=== PATIENT | male | born 1940 | race Caucasian/White ===

== ENCOUNTER 2018-01-15 10:12 | Inpatient (IN) | payer MEDICARE ==
--- NOTE | 2017-12-31 20:12 | HP ---
CC: James Kline; Dr. Caleb Allen; Dr. Pedro Chadwick* ADMISSION HISTORY AND PHYSICAL: DATE OF ADMISSION/SURGERY: 01/15/18 ATTENDING SURGEON: Dr. Pedro Calixto* (dictated by ROGELIO Desir). CHIEF COMPLAINT: Colon polyp. HISTORY OF PRESENT ILLNESS: This is a 77-year-old male, who underwent his initial screening colonoscopy on 09/11/17 prior to initiating external beam radiation therapy for prostate cancer. The study was ordered by Dr. Chadwick and performed by Dr. Allen. Findings included a small polyp in the cecum and another at 20 cm from the anal verge, both of which were removed and were benign. In addition, there were 2 large polyps at 70 cm occurring at a fold and were too large to be removed via the colonoscope. Biopsy showed tubular adenoma. The patient has not had significant symptoms other than occasional diarrhea, but generally bowel movements every 1 to 2 days without bright red blood per rectum, hematochezia, or melena. He has had some minor symptoms following the radiation therapy. There is no family history of colorectal cancer. He was seen in the office by Dr. Calixto on 11/29/17. The patient understands the options including the indications, risks, benefits, and alternatives, and would like to proceed as scheduled with laparoscopic colon polypectomy or possible partial colectomy. He has had prior urgent AAA repair via midline incision and therefore understands the potential need for conversion to open approach. PAST MEDICAL HISTORY: Prostate cancer (recently completed external beam radiation therapy around 11/21/17). He did receive what sounds like Lupron injections prior to initiation of radiation therapy and is scheduled for same with Dr. Ayers in the near future. He has been treated for hypertension. He has a history of angina (status post [employer] in 1995, but no stent placement) ( see separate stress test and medical clearance reports). He is treated for hypothyroidism, hyperlipidemia, and has a past history of gout, though no recent exacerbations. He also has osteoarthritis involving a number of joints. 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 CURRENT MEDICATIONS: 1. Metoprolol 25 mg b.i.d. 2. Enalapril 20 mg b.i.d. 3. Levothyroxine 25 mcg q. day. 4. Atorvastatin 20 mg q. day. 5. Aspirin 325 mg q. day (the patient instructed to continue perioperatively). 6. Allopurinol 300 mg q. day. 7. Tamsulosin 0.4 mg q. day. 8. Multivitamin q. day. 9. Lupron injections as noted above. 10. Nitroglycerin 0.4 mg sublingual p.r.n. (uses rarely). DRUG ALLERGIES: None known. FAMILY HISTORY: Negative for anesthesia problems, bleeding, or clotting disorders. SOCIAL HISTORY: The patient is . He is retired from retail work. He is a former smoker, who quit in 1995. He denies use of alcohol or other substances. REVIEW OF SYSTEMS: General: No recent constitutional symptoms or acute illnesses other than described in the HPI and past medical history. His weight has been stable. Head: No recent problems reported. Eyes, Ears, Nose, Throat : No problems or changes reported. He has full upper and partial lower dentures. Cardiovascular: No recent chest pain, palpitations. See also attached stress test report. No history of murmur. Respiratory: No history of asthma or COPD. Past smoking history as noted. GI: No GERD symptoms. Lower GI as noted above. : He is followed by Dr. Ayers. He recently completed radiation therapy for prostate cancer. He states that his most recent PSA was less than 1. Chart record history of nephrolithiasis (though I did not confirm that with the patient). Endocrine: Hypothyroidism, on replacement. No history of diabetes. PHYSICAL EXAMINATION GENERAL: Well-nourished, mildly obese male, in no acute distress. VITAL SIGNS: Height 5 feet 10 inches, weight 200 pounds. Blood pressure 130/70 , pulse 68, respirations 16. HEENT: Head: Atraumatic. Ears, Eyes, Nose, Throat: Pupils are equal, round, and reactive. EOMs intact. No conjunctival pallor. Oropharynx: Full upper and partial lower dentures. Remaining teeth in good repair. No intraoral lesions. NECK: No lymphadenopathy, thyromegaly, or masses. LUNGS: Clear to auscultation. No rales or wheezes, though he does have a few crackles at the right base. HEART: Regular rate and rhythm. No murmur noted. ABDOMEN: Well-healed midline incision from xiphoid process to infraumbilical. No palpable masses or organomegaly. No tenderness. There are well-healed bilateral groin incisions from femoral aortobifemoral bypass. No palpable masses. GENITALIA: Otherwise not repeated. RECTAL: Otherwise not repeated. BACK: No spinous process or CVA tenderness. EXTREMITIES: No edema. Peripheral pulses not specifically checked, though by history the patient has some degree of peripheral arterial disease. NEUROLOGICAL: Grossly intact. Specific exam not performed at this time. SKIN: Warm and dry. No suspicious rashes or lesions noted. IMPRESSION: Colon polyp. PLAN: Laparoscopic colon polypectomy or possible partial colectomy. ROGELIO DESIR [id number] #: [id number] TIM
[~2018-01-15 10:12] MED LIST: Buffered Lidocaine 0.9% SYRIN* 5 ML/SYR SYRINGE INTRADERM ONE; ERTApenem(*) 1 GM in NS 0.9% 50 ML* 50 ML IVPB SCH; Famotidine IV* 10 MG/ML 2 ML (20 mg) IV ONE
--- OUTSIDE RECORDS SUMMARY | 2018-01-15 10:17 | XMS REPORT ---
:1940 External Reference #:[id number] Author Organization [facility] Address [address] [place] [address] [place] [address] Phone [phone] Care Team Providers Name Role Phone Caleb Allen MD Care Team Information Labor/Excavator Unavailable Marisela Chris RPA Primary Care Physician Unavailable Payers Type Date Identification Numbers Payment Provider Subscriber Health Maintenance Policy Number: Medicare Blue o Jj Aden [facility] (O) [id number] PayID: [id number] [address] [address] [place] [address] [facility] Policy Number: [id number] Medicare [facility] PayID: [id number] [address] [place] [address] Problems Description No Information Family History Date Family Member(s) Problem(s) Comments Father Stomach Cancer Mother Hypertension First Brother Pancreatic Cancer Social History Type Date Description Comments Marital Status Occupation Retired Smoking Patient is a former smoker quit in 1995 Daily Caffeine Consumes on average 3 cups of regular coffee per day Exercise Type/Frequency Exercises sporadically Allergies, Adverse Reactions, Alerts Date Description Reaction Status Severity Comments 11/22/2017 NKDA active Medications Medication Date Status Form Strength Qnty SIG Indications Ordering Provider Allopurinol Active Tablets 300mg 1 by Unknown 000 mouth every day Enalapril Active Tablets 20mg 2 by Unknown Maleate 000 mouth every day Nitroglycerin 0 Active Tablets 0.4mg 1 sl Unknown 000 Sub q5mins x3 as needed for chest pain Atorvastatin Active Tablets 20mg take 1 Unknown Calcium 000 tablet at bedtime Metoprolol Active Tablets 25mg 1 by Unknown Tartrate 000 mouth twice a day Levothyroxine Active Tablets 25mcg 1 by Unknown Sodium 000 mouth every day Aspirin Active Tablets DR 325mg take 1 by Unknown 000 mouth once a day Centrum Silver Active Tablets 1 by Unknown 000 mouth every day Tamsulosin HCL Active Capsules 0.4mg 1 by Unknown 000 mouth every day Vital Signs Date Vital Result Comment 12/31/2017 Height 70 inches 5'10" Weight 200.00 lb Heart Rate 68 /min BP Systolic 130 mmHg BP Diastolic 70 mmHg Respiratory Rate 16 /min Body Temperature 97.2 F BMI (Body Mass Index) 28.7 kg/m2 11/29/2017 Height 70 inches 5'10" Weight 200.00 lb Heart Rate 66 /min BP Systolic Sitting 146 mmHg BP Diastolic Sitting 88 mmHg Respiratory Rate 16 /min Body Temperature 97.6 F BMI (Body Mass Index) 28.7 kg/m2 Results Description No Information Procedures Date CPT Code Description Status 09/11/2017 Colonoscopy Completed Encounters Type Date Location Provider CPT E/M Dx Office Visit 11/29/2017 [facility] [place], [id number] K63.5 11:00a [facility] FACS Plan of Care Future Appointment(s):01/15/2018 1:15 pm - Roby Jj PA at [facility]01/15/2018 1:15 pm - Pedro Calixto MD, FACS at [facility]12/31/2017 - Roby Jj, PAK63.5 Polyp of [id number] Encounter for other preprocedural examination
--- OUTSIDE RECORDS SUMMARY | 2018-01-15 10:17 | XMS REPORT ---
:1940 External Reference #:[id number] Author Organization [facility] Address [address], [address] [place] [address] Phone [phone] Care Team Providers Name Role Phone Marisela Chris RPAC Care Team Information Ssis Developer Unavailable Marisela Chris RPAC Primary Care Physician Unavailable Payers Type Date Identification Numbers Payment Provider Subscriber Commercial Policy Number: [id number] [employer] Number: [id number] [address] [address] PayID: [id number] [place] [address] Problems Date Description Provider Status Onset: 02/12/2014 Osteoarthritis of multiple joints EDIL Nolasco Active Note: knee Onset: 02/12/2013 Thrombocytopenic disorder EDIL Nolasco Active Note: variable Onset: 08/07/2011 Hypothyroidism EDIL Nolasco Active Note: 2009 Onset: 08/07/2011 Family history of prostate cancer EDIL Nolasco Active Onset: 08/07/2011 Patient post percutaneous EDIL Nolasco Active transluminal coronary angioplasty Note: 1995 Onset: 08/07/2011 Coronary arteriosclerosis EDIL Nolasco Active Note: IWMI 12/1995 Onset: 08/07/2011 Methicillin resistant Staphylococcus EDIL Nolasco Active aureus Note: surgical wound infection 2006 Onset: 08/07/2011 Urolith EDIL Nolasco Active Note: nonobstructing (R) renal calculi Onset: 05/16/2011 [facility]: 05/16/2011 [facility]: 1989 Onset: 05/16/2011 Benign essential [facility] Onset: 03/03/2015 Hyperglycemia Marisela Chris [facility] Active Note: noted 2001 Onset: 03/03/2015 Raised prostate specific antigen [facility]: noted 2014 Onset: 05/04/2015 Primary malignant [facility] prostate Note: 2014, hormone injection/radiation tx 2017 Onset: 09/03/2015 Cholelithiasis without obstruction [facility] Onset: 11/24/2015 Gallstone [facility] Note: noted 08/2015 CT Onset: 04/23/2017 Occlusion of left femoral artery [facility]: noted on CT 2012 Onset: 09/13/2017 Polyp of [facility] Note: tubular adenomas, 2017 Onset: 12/13/2017 Encounter for other preproced[facility] examination Onset: 10/05/2011 Aneurysm of iliac artery Alirio Vasquez M.D. Inactive Inactive: 10/05/2011 Family History Date Family Member(s) Problem(s) Comments Father due to Stomach Cancer () Father Prostate Cancer ? Father Stomach Cancer Mother due to Hypertension () Mother Hypertension Mother due to Stroke () Mother Stroke First Brother Pancreatic Cancer First Sister Renal Failure Syndrome Social History Type Date Description Comments Marital Status Lives With Diet Negative For Patient follows no dietary restrictions Diet Patient is on a low fat diet Occupation Retired Occupation staying quite active doing [employer] Cigarette Use Former Cigarette Smoker ETOH Use Occasionally consumes alcohol Smoking Patient is a former smoker Daily Caffeine Consumes on average 2 cups of regular coffee per day Daily Caffeine Diet; staying on low fat diet Allergies, Adverse Reactions, Alerts Date Description Reaction Status Severity Comments 09/21/2009 NKDA active Medications Medication Date Status Form Strength Qnty SIG Indications Ordering Provider Metoprolol 05/24/ Active Tablets 25mg 180tab take one Melvin Tartrate 2016 s tablet by Mays, mouth twice M.D. daily Enalapril 10/01/ Active Tablets 20mg 180tab 2 tabs by Melvin Maleate 2014 s mouth every Mays, day M.D. Levothyroxine 07/23/ Active Tablets 25mcg 90tabs take one Melvin Sodium 2013 tablet by Mays, mouth once M.D. daily Atorvastatin 02/11/ Active Tablets 20mg 90tabs take one Melvin Calcium 2011 tablet by Mays, mouth once M.D. daily Nitrostat 08/06/ Active Tablets 0.4mg 30tabs one Melvin 2011 Sub sublingual Mays, at onset of M.D. chest pain/ angina, may repeat q 5 minutes, follow with rc'bertin Fluocinonide / Active Solution 0.05% Thin layer Unknown 0000 to scalp prn Aspirin / Active Tablets 325mg 1 tab by Ramses 0000 mouth every Michell reynoso MD Multi-Vitamin / Active Tablets 1 po qd Gamal Pearce MD Allopurinol / Active Tablets 300mg 90tabs take one Melvin 0000 tablet by Mays, mouth once M.D. daily Tamsulosin HCL / Active Capsules 0.4mg 1 daily Constance Chadwick 0000 hn W Metoprolol 06/16/ Hx Tablets ER 50mg 90tabs 1 tab by Dev Parsons Succinate ER 2012 - 24HR mouth every Sanjay DO 2015 Enalapril / Hx 20mg 2 tabs by Unknown Maleate 0000 - mouth every 2014 Simvastatin / Hx 40mg Unknown 2014 Metoprolol / Hx 50mg Unknown Succinate 2014 Nitroglycerin / Hx 0.4mg Unknown 2014 Immunizations CPT Code Status Date Vaccine Lot # [id number] Given 02/01/2009 Tetnus Injection Vital Signs Date Vital Result Comment 12/13/2017 BP Systolic 124 mmHg BP Diastolic 70 mmHg Body Temperature 97.5 F Heart Rate 66 /min Respiratory Rate 18 /min Height 70 inches 5'10" Weight 205.50 lb BMI (Body Mass Index) 29.5 kg/m2 BSA (Body Surface Area) 2.11 m2 [place] body weight in kilograms 75 O2 % BldC Oximetry 93 % 08/21/2017 BP Systolic Sitting Right Arm 122 mmHg BP Diastolic Sitting Right Arm 80 mmHg Heart Rate 54 /min Respiratory Rate 15 /min Height 70 inches 5'10" Weight 201.00 lb BMI (Body Mass Index) 28.8 kg/m2 BSA (Body Surface Area) 2.09 m2 [place] body weight in kilograms 75 O2 % BldC Oximetry 94 % ra 02/16/2017 BP Systolic Sitting Right Arm 130 mmHg BP Diastolic Sitting Right Arm 82 mmHg Heart Rate 50 /min Respiratory Rate 18 /min Height 70 inches 5'10" Weight 206.00 lb BMI (Body Mass Index) 29.6 kg/m2 BSA (Body Surface Area) 2.11 m2 [place] body weight in kilograms 75 O2 % BldC Oximetry 94 % ra 08/16/2016 BP Systolic Sitting Right Arm 148 mmHg BP Diastolic Sitting Right Arm 82 mmHg Heart Rate 80 /min Height 70 inches 5'10" Weight 208.00 lb BMI (Body Mass Index) 29.8 kg/m2 BSA (Body Surface Area) 2.12 m2 O2 % BldC Oximetry 92 % 02/17/2016 BP Systolic Sitting Right Arm 134 mmHg BP Diastolic Sitting Right Arm 76 mmHg Heart Rate 72 /min Height 70 inches 5'10" Weight 209.25 lb BMI (Body Mass Index) 30.0 kg/m2 BSA (Body Surface Area) 2.13 m2 O2 % BldC Oximetry 91 % 08/12/2015 BP Systolic 130 mmHg BP Diastolic 86 mmHg Height 70 inches 5'10" Weight 205.00 lb BMI (Body Mass Index) 29.4 kg/m2 BSA (Body Surface Area) 2.11 m2 02/11/2015 BP Systolic 126 mmHg BP Diastolic 70 mmHg Height 70 inches 5'10" Weight 208.25 lb BMI (Body Mass Index) 29.9 kg/m2 BSA (Body Surface Area) 2.12 m2 08/12/2014 BP Systolic 142 mmHg BP Diastolic 80 mmHg Height 70 inches 5'10" Weight 212.00 lb 02/12/2014 BP Systolic 138 mmHg BP Diastolic 78 mmHg Height 70 inches 5'10" Weight 212.00 lb 10/28/2012 BP Systolic Sitting Right Arm 143 mmHg BP Diastolic Sitting Right Arm 84 mmHg Heart Rate 69 /min Respiratory Rate 16 /min Height 70 inches 5'10" Weight 201.00 lb BMI (Body Mass Index) 28.8 kg/m2 BSA (Body Surface Area) 2.09 m2 10/05/2011 Heart Rate 70 /min Height 70 inches 5'10" Weight 212.00 lb BMI (Body Mass Index) 30.4 kg/m2 10/05/2010 BP Systolic Sitting Left Arm 127 mmHg BP Diastolic Sitting Left Arm 90 mmHg Body Temperature 99.1 F Heart Rate 96 /min Respiratory Rate 20 /min Height 70 inches 5'10" Weight 219.00 lb BMI (Body Mass Index) 31.4 kg/m2 10/13/2009 Heart Rate 114 /min Respiratory Rate 18 /min Height 70 inches 5'10" Weight 208.00 lb BMI (Body Mass Index) 29.8 kg/m2 Results Test Date Test Result H/L Range Note Urine Dipstick 12/13/2017 Ua Color Yellow Yellow Ua Clarity Clear Clear Ua Leuko Negative Negative Ua Nitrite Negative Negative Ua Urobilinogen 17 High 0.2 - 1.0 E.U./dL Ua Protein 0.15 High Negative Ua PH 5.5 Low 6.5-7.5 Ua Blood Negative Negative Ua Specific [place] 1.030 1.010-1.030 Ua Ketones 0.5 High Negative Ua Bilirubin Negative Negative Ua Glucose Negative Negative Laboratory test 12/11/2017 PSA Diagnostic 0.569 ng/mL 0-4.000 1 finding Laboratory test 09/11/2017 Surgical Interface SEE RESULT 2, 3 finding Order BELOW Laboratory test 08/21/2017 Ultra Sensitive PSA 0.778 ng/mL 0.000-4.000 4 , 5 finding Thyroid Stim Hormone 3.30 uIU/mL 0.30-4.20 4 LDL Cholesterol Profile 08/21/2017 Cholesterol 148 mg/dL <200 4, 6 Triglycerides 136 mg/dL <150 4, 7 HDL Cholesterol 46 mg/dL >40 4, 8 LDL-Cholesterol 75 mg/dL < 100 4, 9 Liver Function Tests 08/21/2017 Total Protein 7.4 g/dL 6.4-8.2 4 Albumin 4.1 g/dL 3.4-5.0 4 Globulin 3.3 g/dL 1.9-4.3 4 Alb/Glob 1.2 ratio 4 Bilirubin,Total 0.5 mg/dL 0.2-1.0 4 Bilirubin,Direct 0.1 mg/dL 0.0-0.2 4 Bilirubin,Indirect 0.4 mg/dL 0.0-0.9 4 Sgot/Ast 30 U/L 15-37 4 SGPT/Alt 37 U/L 12-78 4 Alkaline Phosphatase 102 U/L 45-117 4 Basic Metabolic Panel 08/21/2017 Glucose 93 mg/dL 74-106 4 BUN 23 mg/dL High 7-18 4 Creatinine 1.1 mg/dL 0.6-1.3 4 Glom Filtration Rate, Estimate >60 mL/min >60 4 If >60 mL/min >60 4, 10 BUN/Creat 20.9 ratio 4 Sodium 138 mmol/L 136-145 4 Potassium 4.3 mmol/L 3.5-5.1 4 Chloride 103 mmol/L 98-107 4 Carbon Dioxide 29 mmol/L 21-32 4 Anion Gap 6 mEq/L Low 8-16 4 Calcium 9.0 mg/dL 8.5-10.1 4 BMP Basic Metabolic Panel (8) 04/04/2017 Sodium 139 mmol/L 133-145 11 Potassium 4.7 mmol/L 3.5-5.0 11 Chloride 103 mmol/L 101-111 11 Co2 Carbon Dioxide 29 mmol/L 22-32 11 Anion Gap 7 mmol/L 2-11 11 Glucose 115 mg/dL High 70-100 11 Blood Urea Nitrogen 14 mg/dL 6-24 11 Creatinine 1.31 mg/dL High 0.67-1.17 11 BUN/Creatinine Ratio 10.7 8-20 11 Calcium 9.6 mg/dL 8.6-10.3 11 Egfr Non- 53.1 >60 11 Egfr 68.2 >60 11, 12 Laboratory test finding 03/08/2017 PSA Screening 14.784 ng/mL High 0- 4.000 13 CBS W/Automated Diff 08/16/2016 White Blood Count 7.7 K/uL 3.4-10.5 14 Red Blood Count 4.61 M/uL 4.20-5.80 14 Hemoglobin 14.1 gm/dL 12.8-17.0 14 Hematocrit 42.9 % 38.0-48.0 14 Mean Cell Volume 93.1 fl 80.0-96.0 14 Mean Corpuscular HGB 30.6 pg 27.0-33.0 14 Mean Corpuscular HGB Conc 32.9 g/dL 31.7-36.0 14 Platelet Count 175 K/uL 150-400 14 Red Cell Distri Width SD 47.2 fl 36-51 14 Red Cell Distri Width %CV 14.3 % 11.6-15.8 14 Mean Platelet Volume 12.2 fL High 6.6-10.6 14 Neut% 64.4 % 33.0-73.0 14 Lymph % 20.4 % 20.0-42.0 14 [place] % 8.3 % 0.0-10.0 14 Eo% 6.4 % 0.0-6.6 14 Bas% 0.5 % 0.0-1.1 14 Neut# 4.95 K/uL 1.8-7.0 14 Lymph # 1.57 K/uL 1.0-4.0 14 [place] # 0.64 K/uL 0.0-0.8 14 Eos # 0.49 K/uL 0.0-0.5 14 Baso # 0.04 K/uL 0.0-0.1 14 Comprehensive Metabolic Panel 08/16/2016 Glucose 104 mg/dL 74-106 14 BUN 14 mg/dL 7-18 14 Creatinine 1.1 mg/dL 0.6-1.3 14 Glom Filtration Rate, Estimate >60 mL/min >60 14 If >60 mL/min >60 14, 15 BUN/Creat 12.7 ratio 14 Sodium 142 mmol/L 136-145 14 Potassium 4.3 mmol/L 3.5-5.1 14 Chloride 107 mmol/L 98-107 14 Carbon Dioxide 28 mmol/L 21-32 14 Anion Gap 7 mEq/L Low 8-16 14 Calcium 8.6 mg/dL 8.5-10.1 14 Total Protein 7.2 g/dL 6.4-8.2 14 Albumin 3.9 g/dL 3.4-5.0 14 Globulin 3.3 g/dL 1.9-4.3 14 Alb/Glob 1.2 ratio 14 Bilirubin,Total 0.4 mg/dL 0.2-1.0 14 Sgot/Ast 28 U/L 15-37 14 SGPT/Alt 51 U/L 12-78 14 Alkaline Phosphatase 99 U/L 45-117 14 Reflex add FT3? N 14 Reflex add FT4? Y 14 LDL Cholesterol Profile 08/16/2016 Cholesterol 136 mg/dL <200 14, 16 Triglycerides 178 mg/dL High <150 14, 17 HDL Cholesterol 37 mg/dL Low >40 14, 18 LDL-Cholesterol 63 mg/dL < 100 14, 19 Reflex add FT3? N 14 Reflex add FT4? Y 14 TSH Reflex FT4 And/Or FT3 08/16/2016 Thyroid Stim Hormone 3.47 uIU/mL 0.30-4.20 14 Reflex add FT3? N 14 Reflex add FT4? Y 14 Laboratory test finding 08/30/2015 Creatinine 1.2 mg/dL 0.6-1.3 BUN 12 mg/dL 7-18 Laboratory test finding 08/12/2015 Thyroid Stim Hormone 3.81 uIU/mL High 0.36-3.74 Lipid Panel 08/12/2015 Cholesterol 146 mg/dL <200 20 Triglycerides 164 mg/dL High <150 21 HDL Cholesterol 38 mg/dL Low >40 22 LDL-Cholesterol 75 mg/dL < 100 23 Liver - Hepatic Panel 08/12/2015 Total Protein 8.1 g/dL 6.4-8.2 Albumin 4.4 g/dL 3.4-5.0 Globulin 3.7 g/dL 1.9-4.3 Alb/Glob 1.2 ratio Bilirubin,Total 0.5 mg/dL 0.2-1.0 Bilirubin,Direct 0.1 mg/dL 0.0-0.2 Bilirubin,Indirect 0.4 mg/dL 0.0-0.9 Sgot/Ast 38 U/L High 15-37 SGPT/Alt 64 U/L 12-78 Alkaline Phosphatase 117 U/L 45-117 CBC W/Diff & PLT 08/12/2015 White Blood Count 8.1 K/uL 3.4-10.5 Red Blood Count 4.91 M/uL 4.20-5.80 Hemoglobin 15.1 gm/dL 12.8-17.0 Hematocrit 45.4 % 38.0-48.0 Mean Cell Volume 92.5 fl 80.0-96.0 Mean Corpuscular HGB 30.8 pg 27.0-33.0 Mean Corpuscular HGB Conc 33.3 g/dL 31.7-36.0 Platelet Count 152 K/uL 150-400 Red Cell Distri Width SD 47.1 fl 36-51 Red Cell Distri Width %CV 14.4 % 11.6-15.8 Mean Platelet Volume 12.1 fL High 6.6-10.6 Neut% 67.8 % 33.0-73.0 Lymph % 18.8 % 17.0-56.0 [place] % 8.2 % 0.0-10.0 Eo% 4.7 % 0.0-5.0 Bas% 0.5 % 0.1-1.0 Neut# 5.46 K/uL 1.8-7.0 Lymph # 1.51 K/uL Low 1.8-7.0 [place] # 0.66 K/uL 0.0-0.8 Eos # 0.38 K/uL 0.0-0.5 Baso # 0.04 K/uL Low 0.1-0.2 Liver Function Tests 02/11/2015 Total Protein 7.5 g/dL 6.4-8.2 Albumin 3.9 g/dL 3.4-5.0 Globulin 3.6 g/dL 1.9-4.3 Alb/Glob 1.1 ratio Bilirubin,Total 0.5 mg/dL 0.2-1.0 Bilirubin,Direct 0.1 mg/dL 0.0-0.2 Bilirubin,Indirect 0.4 mg/dL 0.0-0.9 Sgot/Ast 37 U/L 15-37 SGPT/Alt 56 U/L 12-78 Alkaline Phosphatase 103 U/L 45-117 Basic Metabolic Panel 02/11/2015 Glucose 93 mg/dL 74-106 BUN 10 mg/dL 7-18 Creatinine 1.2 mg/dL 0.6-1.3 Glom Filtration Rate, Estimate >60 mL/min >60 If >60 mL/min >60 24 BUN/Creat 8.3 ratio Sodium 140 mmol/L 136-145 Potassium 4.3 mmol/L 3.5-5.1 Chloride 106 mmol/L 98-107 Carbon Dioxide 29 mmol/L 21-32 Anion Gap 5 mEq/L Low 8-16 Calcium 9.4 mg/dL 8.5-10.1 Laboratory test finding 02/11/2015 Uric Acid 4.6 mg/dL 3.5-7.2 LDL Cholesterol Profile 02/11/2015 Cholesterol 122 mg/dL < 200 25 Triglycerides 133 mg/dL < 150 26 HDL Cholesterol 33 mg/dL > 40 27 LDL-Cholesterol 62 mg/dL < 100 28 Laboratory test finding 02/11/2015 Prostate Specific Antigen 6.43 ng/mL 29 CBC W/Automated Diff 02/11/2015 White Blood Count 8.0 K/uL 3.4-10.5 Red Blood Count 4.69 M/uL 4.20-5.80 Hemoglobin 14.5 gm/dL 12.8-17.0 Hematocrit 43.3 % 38.0-48.0 Mean Cell Volume 92.3 fl 80.0-96.0 Mean Corpuscular HGB 30.9 pg 27.0-33.0 Mean Corpuscular HGB Conc 33.5 g/dL 31.7-36.0 Platelet Count 145 K/uL Low 150-400 Red Cell Distri Width SD 47.3 fl 36-51 Red Cell Distri Width %CV 14.4 % 11.6-15.8 Mean Platelet Volume 12.1 fL High 6.6-10.6 Neut% 62.3 % 33.0-73.0 Lymph % 23.8 % 17.0-56.0 [place] % 8.6 % 0.0-10.0 Eo% 4.9 % 0.0-5.0 Bas% 0.4 % 0.1-1.0 Neut# 4.99 K/uL 1.8-7.0 Lymph # 1.91 K/uL 1.8-7.0 [place] # 0.69 K/uL 0.0-0.8 Eos # 0.39 K/uL 0.0-0.5 Baso # 0.03 K/uL Low 0.1-0.2 Laboratory test finding 08/12/2014 Prostate Specific Antigen 6.02 ng/mL 30 TSH Reflex FT4 and/or FT3 2.37 uIU/mL 0.36-3.74 31 CBC W/Automated Diff 08/12/2014 Bas% 0.6 % 0.1-1.0 Baso # 0.04 K/uL Low 0.1-0.2 Eo% 4.9 % 0.0-5.0 Eos # 0.33 K/uL 0.0-0.5 Hematocrit 43.4 % 38.0-48.0 Hemoglobin 14.4 gm/dL 12.8-17.0 Lymph # 1.58 K/uL Low 1.8-7.0 Lymph % 23.7 % 17.0-56.0 Mean Cell Volume 92.9 fl 80.0-96.0 Mean Corpuscular HGB 30.8 pg 27.0-33.0 Mean Corpuscular HGB Conc 33.2 g/dL 31.7-36.0 Mean Platelet Volume 11.7 fL High 6.6-10.6 [place] # 0.57 K/uL 0.0-0.8 [place] % 8.5 % 0.0-10.0 Neut# 4.16 K/uL 1.8-7.0 Neut% 62.3 % 33.0-73.0 Platelet Count 138 K/uL Low 150-400 Red Blood Count 4.67 M/uL 4.20-5.80 Red Cell Distri Width %CV 14.4 % 11.6-15.8 Red Cell Distri Width SD 47.8 fl 36-51 White Blood Count 6.7 K/uL 3.4-10.5 CBC With Manual Diff 08/12/2012 White Blood Count 7.7 10^3/uL 4.8-10.8 Red Blood Count 4.88 10^6/uL 4.0-5.4 Hemoglobin 14.9 g/dL 14.0-18.0 Hematocrit 45 % 42-52 Mean Corpuscular Volume 93 fL 80-94 Mean Corpuscular Hemoglobin 31 pg 27-31 Mean Corpuscular HGB Conc 33 g/dL 31-36 Red Cell Distribution Width 15 % 10.5-15 Platelet Count 133 10^3/uL Low 150-450 Mean Platelet Volume 10 um3 7.4-10.4 Abs Neutrophils 5.1 10^3/uL 1.5-7.7 Abs Lymphocytes 1.6 10^3/uL 1.0-4.8 Abs Monocytes 0.5 10^3/uL 0-0.8 Abs Eosinophils 0.3 10^3/uL 0-0.6 Abs Basophils 0.1 10^3/uL 0-0.2 Abs Nucleated RBC 0 10^3/uL Neutrophil % 65 % 38-83 Band % 1 % 0-8 Lymphocytes % 22 % Low 25-47 Monocytes % 4 % 0-13 Eosinophils % 6 % 0-6 Basophil % 2 % 0-2 RBC Morphology Normal Normal Laboratory test finding 08/12/2012 Creatine Kinase 93 U/L 0-200 TSH (Thyroid Stimulating Horm) 3.23 miu/mL 0.34-5.60 PSA Diagnostic 3.8 ng/mL 0-4.0 32 Liver Function Panel 08/12/2012 Total Protein 6.8 g/dL 6.2-8.1 Albumin 4.2 g/dL 3.2-5.2 Globulin 2.6 g/dL 2-4 Albumin/Globulin Ratio 1.6 1-3 Total Bilirubin 0.6 mg/dL 0.4-1.5 Direct Bilirubin 0.1 mg/dL 0.1-0.5 Indirect Bilirubin 0.5 mg/dL 0.3-1.0 Alkaline Phosphatase 105 U/L 30-110 Alt 43 U/L 14-54 Ast 34 U/L 12-42 Lipid Profile (Trig/Chol/HDL) 08/12/2012 Triglycerides 89 mg/dL 40-200 Cholesterol 131 mg/dL Less than 200 HDL Cholesterol 42 mg/dL 40-60 33 Cholesterol/HDL Ratio 3.1 Average 1-4.44 LDL Cholesterol 71.2 mg/dL Less Than 100 34 Basic Metabolic Panel 08/12/2012 Sodium 138 mmol/L 133-145 Potassium 4.6 mmol/L 3.5-5.0 Chloride 103 mmol/L 101-111 Co2 Carbon Dioxide 26.0 mmol/L 22-32 Anion Gap 9.0 mmol/L 2-11 Glucose 93 mg/dL 70-100 Blood Urea Nitrogen 11 mg/dL 6-24 Creatinine 1.10 mg/dL 0.50-1.40 BUN/Creatinine Ratio 10.0 8-20 Calcium 9.9 mg/dL 8.1-9.9 Egfr Non- 65.8 >60 Egfr 84.6 >60 35 Laboratory test finding 09/27/2011 BUN 12 mg/dL 5-23 36 Creatinine 1.2 mg/dL 0.5-1.4 37 Laboratory test finding 02/02/2010 CK 79 U/L 26-190 38 Thyroid Stim Hormone 2.14 uIU/mL 0.49-4.67 39 LDL Cholesterol Profile 02/02/2010 Cholesterol 176 mg/dL 120-200 Triglycerides 153 mg/dL 0-210 HDL Cholesterol 57 mg/dL 32-96 LDL-Cholesterol 88 mg/dL 62-185 Basic Metabolic Panel 02/02/2010 Glucose 99 mg/dL 76-115 BUN 13 mg/dL 5-23 Creatinine 1.1 mg/dL 0.5-1.4 Glom Filtration Rate, Estimate >60 mL/min >60 If >60 mL/min >60 40 BUN/Creat 11.8 Sodium 137 mEq/L 136-145 Potassium 4.3 mEq/L 3.5-5.1 Chloride 103 mEq/L 98-107 Carbon Dioxide 27 mEq/L 21-32 Anion Gap 11 mEq/L 8-16 Calcium 9.2 mg/dL 8.5-10.1 Liver Function Tests 02/02/2010 Total Protein 7.2 g/dL 6.3-8.0 Albumin 4.1 g/dL 3.5-5.0 Bilirubin,Total 0.5 mg/dL 0.2-1.2 Bilirubin,Direct 0.1 mg/dL 0.1-0.4 Bilirubin,Indirect 0.4 mg/dL 0.0-0.9 Sgot/Ast 55 U/L High 16-40 SGPT/Alt 71 U/L High 30-65 Alkaline Phosphatase 86 U/L 50-136 Globulin 3.1 gm/dL 1.9-4.3 Alb/Glob 1.3 1 Serum levels of PSA measured using the [employer] DXI Hybritech immunoassay should not be interpreted as absolute evidence of the presence or absence of disease. The PSA value should be used in conjunction with other pertinent clinical diagnostic procedures. A PSA value in the range of 0.1 to 0.6 ng/ml is indeterminate if being used as an indicator of recurrent or residual disease. The values obtained with different assay methods or kits cannot be used interchangeably. 2 [id number] 3 SEE RESULT BELOW Name: JJ YAP Dawit : [address]: Caleb Allen MD Acct: [id number] Unit: [id number] AGE: 76 Location: [facility] Re09/11/17 SEX: M Status: DEP REF SPEC: [id number] GIA: 09/11/17-[address] [facility] [address]: Caleb Allen MD REQ: [id number] RECD: 09/11/172039 STATUS: JOSEPH BUCIO DR: Errol Ayers MD _ ORDERED: LEVEL 4/3 COMMENTS: [id number] FINAL DIAGNOSIS 1. Colon, cecum, biopsy: -- Tubular adenoma. -- No high grade dysplasia or malignancy. 2. Colon, at 20 cm, biopsy: -- Hyperplastic polyp. 3. Colon, at 70 cm, biopsy: -- Tubular adenoma. -- No high grade dysplasia or malignancy. -- Hyperplastic polyp. CLINICAL HISTORY Screening/Surveillance for malignancy in asymptomatic patient. POST-OPERATIVE DIAGNOSIS Cecal snare; 69 ? 2 large polyps, flat, biopsy ant tattoo; tics; 20 ? snare x2 GROSS DESCRIPTION 1. The specimen is received in formalin labeled, Cecal Polyp, and consists of a 0.6 x 0.3 x 0.2 cm larson-white polypoid soft tissue fragment which is inked, bisected and submitted entirely in one cassette. 2. The specimen is received in formalin labeled, Colon Polyp at 20 cm, and consists of a 0.4 x 0.2 x 0.2 cm larson-white polypoid soft tissue fragment which is inked, bisected and CONTINUED ON NEXT PAGE DEPARTMENT OF PATHOLOGY, [address] [place] [address] Syd Horne M.D. Director [facility] # [id number] RUN DATE: 09/12/17 [facility] LAB LIVE PAGE 2 Patient: JJ YAP V [id number] (Continued) GROSS DESCRIPTION (Continued) GROSS DESCRIPTION (Continued) submitted entirely in one cassette. 3. The specimen is received in formalin labeled, Biopsy Colon Polyps at 70 cm, and consists of two larson-pink irregular to polypoid soft tissue fragments averaging 0.4 x 0.3 x 0.2 cm which are submitted entirely in one cassette. Signed (signature on file) Nieves Fuller MD [id number] END OF REPORT DEPARTMENT OF PATHOLOGY, [address] [place] [address] Syd Horne M.D. Director [facility] # [id number] 4 C61 E03.9 E78.5 I10 5 Andre ECLIA methodology. According to the [place] [employer], Serum PSA should decrease and remain at undetectable levels after radical prostatectomy. The AUA defines biochemical recurrence as an initial PSA value 0.200 ng/mL or greater followed by a subsequent confirmatory PSA value 0.200 ng/mL or greater. Values obtained with different assay methods or kits cannot be used interchangeably. Results cannot be interpreted as absolute evidence of the presence or absence of malignant disease. Performed at: [address] [id number] Strategy Specialist: Marie Esquivel MD, Phone: [phone] 6 Reference Guidelines*: Desirable: ........... < 200 mg/dL Borderline High: ..... 200-239 mg/dL High: ................ >=240 mg/dL * The National Cholesterol Education Program (NCEP) 7 Reference Guidelines*: Normal: ............. < 150 mg/dL Borderline High: .... 150-199 mg/dL High: ............... 200-499 mg/dL Very High: .......... > 500 mg/dL * Source: National Cholesterol Education Program (NCEP) 8 Reference Guidelines*: Low HDL: ..... < 40 mg/dL Normal: ..... 40-60 mg/dL Desirable: ... > 60 mg/dL *The National Cholesterol Education Program(NCEP) 9 Reference Guidelines*: Optimal:........... <100 mg/dL Near Optimal....... 100-129 mg/dL Borderline High.... 130-159 mg/dL High............... 160-189 mg/dL Very High.......... >=190 mg/dL * Source: National Cholesterol Education Program (NCEP) 10 Note: Persistent reduction for 3 months or more in an eGFR <60 mL/min/1.73 m2 defines CKD. Patients with eGFR values >/=60 mL/min/1.73 m2 may also have CKD if evidence of persistent proteinuria is present. The original MDRD equation for estimated GFR is not valid for patients less than 18 years of age. Additional information may be found at www.kdoqi.org. 11 NO DRAW FEE REDRAW 12 Because ethnic data is not always readily available, this report includes an eGFR for both -Americans and non- Americans. The National Kidney Disease Education Program (NKDEP) does not endorse the use of the MDRD equation for patients that are not between the ages of 18 and 70, are , have extremes of body size, muscle mass, or nutritional status, or are non- or non-. According to the National Kidney Foundation, irrespective of diagnosis, the stage of the disease is based on the level of kidney function: Stage Description GFR(mL/min/1.73 m(2)) 1 Kidney damage with normal or decreased GFR 90 2 Kidney damage with mild decrease in GFR 60-89 3 Moderate decrease in GFR 30-59 4 Severe decrease in GFR 15-29 5 Kidney failure <15 (or dialysis) 13 Serum levels of PSA measured using the [employer] DXI Hybritech immunoassay should not be interpreted as absolute evidence of the presence or absence of disease. The PSA value should be used in conjunction with other pertinent clinical diagnostic procedures. The values obtained with different assay methods or kits cannot be used interchangeably. 14 E03.9 E78.5 I10 C61 15 Note: Persistent reduction for 3 months or more in an eGFR <60 mL/min/1.73 m2 defines CKD. Patients with eGFR values >/=60 mL/min/1.73 m2 may also have CKD if evidence of persistent proteinuria is present. The original MDRD equation for estimated GFR is not valid for patients less than 18 years of age. Additional information may be found at www.kdoqi.org. 16 Reference Guidelines*: Desirable: ........... < 200 mg/dL Borderline High: ..... 200-239 mg/dL High: ................ >=240 mg/dL * The National Cholesterol Education Program (NCEP) 17 Reference Guidelines*: Normal: ............. < 150 mg/dL Borderline High: .... 150-199 mg/dL High: ............... 200-499 mg/dL Very High: .......... > 500 mg/dL * Source: National Cholesterol Education Program (NCEP) 18 Reference Guidelines*: Low HDL: ..... < 40 mg/dL Normal: ..... 40-60 mg/dL Desirable: ... > 60 mg/dL *The National Cholesterol Education Program(NCEP) 19 Reference Guidelines*: Optimal:........... <100 mg/dL Near Optimal....... 100-129 mg/dL Borderline High.... 130-159 mg/dL High............... 160-189 mg/dL Very High.......... >=190 mg/dL * Source: National Cholesterol Education Program (NCEP) 20 Reference Guidelines*: Desirable: ........... < 200 mg/dL Borderline High: ..... 200-239 mg/dL High: ................ >=240 mg/dL * The National Cholesterol Education Program (NCEP) 21 Reference Guidelines*: Normal: ............. < 150 mg/dL Borderline High: .... 150-199 mg/dL High: ............... 200-499 mg/dL Very High: .......... > 500 mg/dL * Source: National Cholesterol Education Program (NCEP) 22 Reference Guidelines*: Low HDL: ..... < 40 mg/dL Normal: ..... 40-60 mg/dL Desirable: ... > 60 mg/dL *The National Cholesterol Education Program(NCEP) 23 Reference Guidelines*: Optimal:........... <100 mg/dL Near Optimal....... 100-129 mg/dL Borderline High.... 130-159 mg/dL High............... 160-189 mg/dL Very High.......... >=190 mg/dL * Source: National Cholesterol Education Program (NCEP) 24 Note: Persistent reduction for 3 months or more in an eGFR <60 mL/min/1.73 m2 defines CKD. Patients with eGFR values >/=60 mL/min/1.73 m2 may also have CKD if evidence of persistent proteinuria is present. The original MDRD equation for estimated GFR is not valid for patients less than 18 years of age. Additional information may be found at www.kdoqi.org. 25 Reference Guidelines*: Desirable: ........... < 200 mg/dL Borderline High: ..... 200-239 mg/dL High: ................ >=240 mg/dL * The National Cholesterol Education Program (NCEP) 26 Reference Guidelines*: Normal: ............. < 150 mg/dL Borderline High: .... 150-199 mg/dL High: ............... 200-499 mg/dL Very High: .......... > 500 mg/dL * Source: National Cholesterol Education Program (NCEP) 27 Reference Guidelines*: Low HDL: ..... < 40 mg/dL Normal: ..... 40-60 mg/dL Desirable: ... > 60 mg/dL *The National Cholesterol Education Program(NCEP) 28 Reference Guidelines*: Optimal:........... <100 mg/dL Near Optimal....... 100-129 mg/dL Borderline High.... 130-159 mg/dL High............... 160-189 mg/dL Very High.......... >=190 mg/dL * Source: National Cholesterol Education Program (NCEP) 29 THIS ASSAY IS NOT INTENDED A CANCER SCREENING TEST The concentration of PSA in a given specimen, determined with assays from different manufacturers, can vary due to differences in assay methods and reagent specificity. Values obtained from different assay methods cannot be used interchangeably. 30 THIS ASSAY IS NOT INTENDED A CANCER SCREENING TEST The concentration of PSA in a given specimen, determined with assays from different manufacturers, can vary due to differences in assay methods and reagent specificity. Values obtained from different assay methods cannot be used interchangeably. 31 QUERY: Reflex add FT3? N QUERY: Reflex add FT4? Y 32 Serum levels of PSA measured using the [employer] DXI Hybritech immunoassay should not be interpreted as absolute evidence of the presence or absence of disease. The PSA value should be used in conjunction with other pertinent clinical diagnostic procedures. The values obtained with different assay methods or kits cannot be used interchangeably. 33 HDL Interpretation: Undesirable: High Risk: Less than 40 MG/DL Desirable: Low Risk: Greater than 60 MG/DL 34 LDL Interpretation: Low Risk Optimal Level: LDL Less than 100 MG/DL Near or Above Optimal: LDL 100-129 MG/DL Borderline High Risk: LDL 130-159 MG/DL High Risk: LDL 160-189 MG/DL Very High Risk: LDL Greater than 189 MG/DL 35 Because ethnic data is not always readily available, this report includes an eGFR for both -Americans and non- Americans. The National Kidney Disease Education Program (NKDEP) does not endorse the use of the MDRD equation for patients that are not between the ages of 18 and 70, are , have extremes of body size, muscle mass, or nutritional status, or are non- or non-. According to the National Kidney Foundation, irrespective of diagnosis, the stage of the disease is based on the level of kidney function: Stage Description GFR(mL/min/1.73 m(2)) 1 Kidney damage with normal or decreased GFR 90 2 Kidney damage with mild decrease in GFR 60-89 3 Moderate decrease in GFR 30-59 4 Severe decrease in GFR 15-29 5 Kidney failure <15 (or dialysis) 36 Comments to hand surgeon: PLEASE CALL [phone] WITH RESULTS. [place] [address]/27/11 by LAB.[email or web address] 37 Comments to hand surgeon: PLEASE CALL [phone] WITH RESULTS. THANK YOU CALLED [facility] AT 40 09/27/11 by LAB.[email or web address] 38 QUERY: @[facility] Pat ID: QUERY: @[facility] Req #: 39 QUERY: @[facility] Pat ID: QUERY: @[facility] Req #: 40 Note: Persistent reduction for 3 months or more in an eGFR <60 mL/min/1.73 m2 defines CKD. Patients with eGFR values >/=60 mL/min/1.73 m2 may also have CKD if evidence of persistent proteinuria is present. The original MDRD equation for estimated GFR is not valid for patients less than 18 years of age. Additional information may be found at www.kdoqi.org. Procedures Date CPT Code Description Status 12/13/2017 18422 EKG-Tracing And Report Completed 09/11/2017 Colonoscopy Completed 12/31/2007 11269 Stress Test Interpre And Report Only Completed 11/22/2001 49045 EKG-Tracing And Report Completed Encounters Type Date Location Provider CPT E/M Dx Office Visit 12/13/2017 Primary Care Office Marisela Chris, 11726 Z01.818 1:00p [facility] K63.5 I25.10 Office Visit 08/21/2017 10:15a Primary Care Office Marisela Chris, [facility] 47108 I10 E78.5 E03.9 C61 Office Visit 02/16/2017 9:30a Primary Care Office Marisela Chris, [facility] 24376 I10 Office Visit 08/16/2016 9:00a Primary Care Office Marisela Chris, [facility] 00355 I10 E78.5 E03.9 C61 I25.10 Office Visit 02/17/2016 9:45a Primary Care Office Marisela Chris [facility] 23181 I10 E78.5 C61 Office Visit 08/12/2015 9:00a Primary Care Office Marisela Chris, [facility] 34483 I10 E78.5 C61 E03.9 I71.3 Office Visit 02/11/2015 9:00a Primary Care Office Marisela Chris, [facility] 82871 E78.5 R97.2 R97.2 M10.9 I10 M10.9 Office Visit 10/28/2012 9:30a Surgical Office Alirio Vasquez M.D. 77036 V67.09 Office Visit 10/05/2011 10:00a Surgical Office Alirio Vasquez M.D. 89378 442.2 Office Visit 10/05/2010 2:45p Surgical Office Alirio Vasquez M.D. 26637 807.02 441.3 278.00 442.2 Office Visit 10/13/2009 1:30p Surgical Office Alirio Vasquez M.D. 82836 441.3 401.1 272.5 Office Visit 09/21/2008 1:30p Surgical Office Alirio Vasquez M.D. 69507 441.3 Plan of Care Future Appointment(s):02/20/2018 9:30 am - EDIL Nolasco at Primary Care Office
--- OUTSIDE RECORDS SUMMARY | 2018-01-15 10:18 | XMS REPORT ---
:1940 External Reference #:[id number] [facility] Address [address], [address] [place] [address] Phone [phone] Care Team Providers Name Role Phone Marisela Chris RPAC Care Team Information Food And Beverage Analyst Unavailable Marisela Chris RPAC Primary Care Physician Unavailable Payers Type Date Identification Numbers Payment Provider Subscriber Commercial Policy Number: [id number] [employer] Number: [id number] [address] [address] PayID: [id number] [place] [address] Problems Date Description Provider Status Onset: 02/12/2014 [...] nonobstructing (R) renal calculi Onset: 05/16/2011 Hyperlipidemia EDIL Nolasco Active Onset: 05/16/2011 [facility] Onset: 05/16/2011 Benign essential hypertension Marisela Chris [facility] Active Onset: 03/03/2015 Hyperglycemia Marisela Chris [facility] Active Note: noted 2001 Onset: 03/03/2015 Raised prostate specific antigen [facility]: noted 2014 Onset: 05/04/2015 [facility] prostate Note: 2014, hormone injection/radiation tx 2017 Onset: 09/03/2015 Cholelithiasis without obstruction [facility] Onset: 11/24/2015 Gallstone [facility] Active Note: noted 08/2015 CT Onset: 04/23/2017 Occlusion of left femoral artery Marisela Chris [facility] Active Note: noted on CT 04/2017 Onset: 09/13/2017 Polyp [facility] Note: tubular adenomas, 2017 Onset: 10/05/2011 Aneurysm of iliac artery Alirio [...] Occupation Retired Occupation staying quite active doing garden works Cigarette Use Former Cigarette Smoker ETOH Use [...] Tablets 25mg 180tab take one Melvin Tartrate 2015 s tablet by Mays, mouth twice M.D. daily Enalapril 10/01/ Active Tablets 20mg 180tab 2 tabs by Melvin Maleate 2014 s mouth every Mays, day M.D. Levothyroxine 07/23/ Active Tablets 25mcg 90tabs take one Melvin Sodium 2014 tablet by Mays, mouth once M.D. daily Atorvastatin 02/11/ Active Tablets 20mg 90tabs take one Melvin Calcium 2011 tablet by Mays, mouth once M.D. daily Nitrostat 08/06/ Active Tablets 0.4mg 30tabs one Melvin 2012 Sub sublingual Mays, at onset of M.D. [...] Active Tablets 300mg 90tabs take one Melvin tablet by Mays, mouth once M.D. daily Tamsulosin HCL / Active Capsules 0.4mg 1 daily Constance Chadwick 0000 hn W Metoprolol 06/16/ Hx Tablets ER 50mg 90tabs 1 tab by Dev Parsons Succinate ER 2012 - 24HR mouth every Sanjay DO 2015 Enalapril / Hx 20mg 2 tabs by Unknown Maleate 0000 - mouth every 2014 Simvastatin / Hx 40mg Unknown - 2014 Metoprolol / Hx 50mg Unknown Succinate - 2014 Nitroglycerin / Hx 0.4mg Unknown 2014 Immunizations CPT Code Status Date Vaccine Lot # [id number] Given 02/01/2009 Tetnus Injection Vital Signs Date Vital Result Comment 12/13/2017 BP Systolic 124 mmHg BP Diastolic 70 mmHg Body Temperature 97.5 F Heart Rate 66 /min Respiratory Rate 18 /min Height 70 inches 5'10" Weight 205.50 lb BMI (Body Mass Index) 29.5 kg/m2 BSA (Body Surface Area) 2.11 m2 Funk body weight in kilograms 75 O2 % BldC Oximetry 93 % 08/21/2017 BP Systolic Sitting Right Arm 122 mmHg BP Diastolic Sitting Right Arm 80 mmHg Heart Rate 54 /min Respiratory Rate 15 /min Height 70 inches 5'10" Weight 201.00 lb BMI (Body Mass Index) 28.8 kg/m2 BSA (Body Surface Area) 2.09 m2 Funk body weight in kilograms 75 O2 % BldC Oximetry 94 % ra 02/16/2017 BP Systolic Sitting Right Arm 130 mmHg BP Diastolic Sitting Right Arm 82 mmHg Heart Rate 50 /min Respiratory Rate 18 /min Height 70 inches 5'10" Weight 206.00 lb BMI (Body Mass Index) 29.6 kg/m2 BSA (Body Surface Area) 2.11 m2 Funk body weight in kilograms 75 O2 % [...] 6.5-7.5 Ua Blood Negative Negative Ua Specific [place] 1.030 1.010-1.030 Ua Ketones 0.5 High Negative Ua Bilirubin Negative Negative Ua Glucose Negative Negative Laboratory test 12/11/2017 PSA Diagnostic 0.569 ng/mL 0-4.000 1 finding Laboratory test 09/11/2017 Surgical Interface SEE RESULT BELOW 2, 3 finding Order Basic Metabolic Panel 08/21/2017 Glucose 93 mg/dL 74-106 4 BUN 23 mg/dL High 7-18 4 Creatinine 1.1 mg/dL 0.6-1.3 4 Glom Filtration Rate, Estimate >60 mL/min >60 4 If >60 mL/min >60 4, 5 BUN/Creat 20.9 ratio 4 Sodium 138 mmol/L 136-145 4 Potassium 4.3 mmol/L 3.5-5.1 4 Chloride 103 mmol/L 98-107 4 Carbon Dioxide 29 mmol/L 21-32 4 Anion Gap 6 mEq/L Low 8-16 4 Calcium 9.0 mg/dL 8.5-10.1 4 Laboratory test finding 08/21/2017 Ultra Sensitive PSA 0.778 ng/mL 0.000- 4.000 4, 6 Thyroid Stim Hormone 3.30 uIU/mL 0.30-4.20 4 LDL Cholesterol Profile 08/21/2017 Cholesterol 148 mg/dL <200 4, 7 Triglycerides 136 mg/dL <150 4, 8 HDL Cholesterol 46 mg/dL >40 4, 9 LDL-Cholesterol 75 mg/dL < 100 4, 10 Liver Function Tests 08/21/2017 Total Protein 7.4 g/dL 6.4-8.2 4 Albumin 4.1 g/dL 3.4-5.0 4 Globulin 3.3 g/dL 1.9-4.3 4 Alb/Glob 1.2 ratio 4 Bilirubin,Total 0.5 mg/dL 0.2-1.0 4 Bilirubin,Direct 0.1 mg/dL 0.0-0.2 4 Bilirubin,Indirect 0.4 mg/dL 0.0-0.9 4 Sgot/Ast 30 U/L 15-37 4 SGPT/Alt 37 U/L 12-78 4 Alkaline Phosphatase 102 U/L 45-117 4 BMP Basic Metabolic Panel (8) 04/04/2017 [...] 14 Lymph % 20.4 % 20.0-42.0 14 [place] % 8.3 % 0.0-10.0 14 Eo% 6.4 % 0.0-6.6 14 Bas% 0.5 % 0.0-1.1 14 Neut# 4.95 K/uL 1.8-7.0 14 Lymph # 1.57 K/uL 1.0-4.0 14 [place] # 0.64 K/uL 0.0-0.8 14 Eos # 0.49 K/uL 0.0-0.5 14 Baso # 0.04 K/uL 0.0-0.1 14 TSH Reflex FT4 And/Or FT3 08/16/2016 Thyroid Stim Hormone 3.47 uIU/mL 0.30-4.20 14 Reflex add FT3? N 14 Reflex add FT4? Y 14 LDL Cholesterol Profile 08/16/2016 Cholesterol 136 mg/dL <200 14, 15 Triglycerides 178 mg/dL High <150 14, 16 HDL Cholesterol 37 mg/dL Low >40 14, 17 LDL-Cholesterol 63 mg/dL < 100 14, 18 Reflex add FT3? N 14 Reflex add FT4? Y 14 Comprehensive Metabolic Panel 08/16/2016 Glucose 104 mg/dL 74-106 14 BUN 14 mg/dL 7-18 14 Creatinine 1.1 mg/dL 0.6-1.3 14 Glom Filtration Rate, Estimate >60 mL/min >60 14 If >60 mL/min >60 14, 19 BUN/Creat 12.7 ratio 14 Sodium 142 mmol/L [...] % 33.0-73.0 Lymph % 18.8 % 17.0-56.0 [place] % 8.2 % 0.0-10.0 Eo% 4.7 % 0.0-5.0 Bas% 0.5 % 0.1-1.0 Neut# 5.46 K/uL 1.8-7.0 Lymph # 1.51 K/uL Low 1.8-7.0 [place] # 0.66 K/uL 0.0-0.8 Eos # 0.38 [...] % 33.0-73.0 Lymph % 23.8 % 17.0-56.0 [place] % 8.6 % 0.0-10.0 Eo% 4.9 % 0.0-5.0 Bas% 0.4 % 0.1-1.0 Neut# 4.99 K/uL 1.8-7.0 Lymph # 1.91 K/uL 1.8-7.0 [place] # 0.69 K/uL 0.0-0.8 Eos # 0.39 [...] Mean Platelet Volume 11.7 fL High 6.6-10.6 [place] # 0.57 K/uL 0.0-0.8 [place] % 8.5 % 0.0-10.0 Neut# 4.16 K/uL 1.8-7.0 Neut% 62.3 % 33.0-73.0 Platelet Count 138 K/uL Low 150-400 Red Blood Count 4.67 M/uL 4.20-5.80 Red Cell Distri Width %CV 14.4 % 11.6-15.8 Red Cell Distri Width SD 47.8 fl 36-51 White Blood Count 6.7 K/uL 3.4-10.5 Lipid Profile (Trig/Chol/HDL) 08/12/2012 Triglycerides 89 mg/dL 40-200 Cholesterol 131 mg/dL Less than 200 HDL Cholesterol 42 mg/dL 40-60 32 Cholesterol/HDL Ratio 3.1 Average 1-4.44 LDL Cholesterol 71.2 mg/dL Less Than 100 33 Liver Function Panel 08/12/2012 Total Protein 6.8 g/dL 6.2-8.1 Albumin 4.2 g/dL 3.2-5.2 Globulin 2.6 g/dL 2-4 Albumin/Globulin Ratio 1.6 1-3 Total Bilirubin 0.6 mg/dL 0.4-1.5 Direct Bilirubin 0.1 mg/dL 0.1-0.5 Indirect Bilirubin 0.5 mg/dL 0.3-1.0 Alkaline Phosphatase 105 U/L 30-110 Alt 43 U/L 14-54 Ast 34 U/L 12-42 Laboratory test finding 08/12/2012 Creatine Kinase 93 U/L 0-200 TSH (Thyroid Stimulating Horm) 3.23 miu/mL 0.34-5.60 PSA Diagnostic 3.8 ng/mL 0-4.0 34 CBC With Manual Diff 08/12/2012 White Blood [...] 2 % 0-2 RBC Morphology Normal Normal Basic Metabolic Panel 08/12/2012 Sodium 138 mmol/L [...] 5-23 36 Creatinine 1.2 mg/dL 0.5-1.4 37 Liver Function Tests 02/02/2010 Total Protein 7.2 g/dL 6.3-8.0 Albumin 4.1 g/dL 3.5-5.0 Bilirubin,Total 0.5 mg/dL 0.2-1.2 Bilirubin,Direct 0.1 mg/dL 0.1-0.4 Bilirubin,Indirect 0.4 mg/dL 0.0-0.9 Sgot/Ast 55 U/L High 16-40 SGPT/Alt 71 U/L High 30-65 Alkaline Phosphatase 86 U/L 50-136 Globulin 3.1 gm/dL 1.9-4.3 Alb/Glob 1.3 Basic Metabolic Panel 02/02/2010 Glucose 99 mg/dL 76-115 BUN 13 mg/dL 5-23 Creatinine 1.1 mg/dL 0.5-1.4 Glom Filtration Rate, Estimate >60 mL/min >60 If >60 mL/min >60 38 BUN/Creat 11.8 Sodium 137 mEq/L 136-145 Potassium 4.3 mEq/L 3.5-5.1 Chloride 103 mEq/L 98-107 Carbon Dioxide 27 mEq/L 21-32 Anion Gap 11 mEq/L 8-16 Calcium 9.2 mg/dL 8.5-10.1 LDL Cholesterol Profile 02/02/2010 Cholesterol 176 mg/dL 120-200 Triglycerides 153 mg/dL 0-210 HDL Cholesterol 57 mg/dL 32-96 LDL-Cholesterol 88 mg/dL 62-185 Laboratory test finding 02/02/2010 CK 79 U/L 26-190 39 Thyroid Stim Hormone 2.14 uIU/mL 0.49-4.67 40 1 Serum levels of PSA measured using the [employer] D[employer] Hybritech immunoassay should not be interpreted [...] or kits cannot be used interchangeably. 2 [id number] 3 SEE RESULT BELOW Name: JJ YAP V : [address]: Caleb Allen MD Acct: [id number] Unit: [id number] AGE: 76 Location: [facility] Re09/11/17 SEX: M Status: DEP REF SPEC: [id number] GIA: 09/11/17-[address] [facility] [address]: Caleb Allen MD REQ: [id number] RECD: 09/11/171718 STATUS: JOSEPH BUCIO DR: Errol Ayers MD _ ORDERED: LEVEL 4/3 COMMENTS: [id number] FINAL DIAGNOSIS 1. Colon, cecum, biopsy: -- [...] CONTINUED ON NEXT PAGE DEPARTMENT OF PATHOLOGY, [address] [place] [address] Syd Horne M.D. Director [facility] # [id number] RUN DATE: 09/12/17 [facility] LAB LIVE PAGE 2 Patient: JJ YAP Dawit [id number] (Continued) GROSS DESCRIPTION (Continued) GROSS DESCRIPTION (Continued) [...] 1054 END OF REPORT DEPARTMENT OF PATHOLOGY, [address] [place] [address] Syd Horne M.D. Director [facility] # [id number] 4 C61 E03.9 E78.5 I10 5 Note: Persistent reduction for 3 months or more in an eGFR <60 mL/min/1.73 m2 defines CKD. Patients with eGFR values >/=60 mL/min/1.73 m2 may also have CKD if evidence of persistent proteinuria is present. The original MDRD equation for estimated GFR is not valid for patients less than 18 years of age. Additional information may be found at www.kdoqi.org. 6 Andre ECLIA methodology. According to the [employer], Serum PSA should decrease and [...] or absence of malignant disease. Performed at: - [facility] [id number] Facility Maintenance Mechanic: Marie Esquivel MD, Phone: [phone] 7 Reference Guidelines*: Desirable: ........... < 200 mg/dL Borderline High: ..... 200-239 mg/dL High: ................ >=240 mg/dL * The National Cholesterol Education Program (NCEP) 8 Reference Guidelines*: Normal: ............. < 150 mg/dL Borderline High: .... 150-199 mg/dL High: ............... 200-499 mg/dL Very High: .......... > 500 mg/dL * Source: National Cholesterol Education Program (NCEP) 9 Reference Guidelines*: Low HDL: ..... < 40 mg/dL Normal: ..... 40-60 mg/dL Desirable: ... > 60 mg/dL *The National Cholesterol Education Program(NCEP) 10 Reference Guidelines*: Optimal:........... <100 mg/dL Near Optimal....... 100-129 mg/dL Borderline High.... 130-159 mg/dL High............... 160-189 mg/dL Very High.......... >=190 mg/dL * Source: National Cholesterol Education Program (NCEP) 11 NO DRAW FEE REDRAW 12 Because [...] Serum levels of PSA measured using the [employer] D[employer] Hybritech immunoassay should not be interpreted as absolute evidence of the presence or absence of disease. The PSA value should be used in conjunction with other pertinent clinical diagnostic procedures. The values obtained with different assay methods or kits cannot be used interchangeably. 14 E03.9 E78.5 I10 C61 15 Reference Guidelines*: Desirable: ........... < 200 mg/dL Borderline High: ..... 200-239 mg/dL High: ................ >=240 mg/dL * The National Cholesterol Education Program (NCEP) 16 Reference Guidelines*: Normal: ............. < 150 mg/dL Borderline High: .... 150-199 mg/dL High: ............... 200-499 mg/dL Very High: .......... > 500 mg/dL * Source: National Cholesterol Education Program (NCEP) 17 Reference Guidelines*: Low HDL: ..... < 40 mg/dL Normal: ..... 40-60 mg/dL Desirable: ... > 60 mg/dL *The National Cholesterol Education Program(NCEP) 18 Reference Guidelines*: Optimal:........... <100 mg/dL Near Optimal....... 100-129 mg/dL Borderline High.... 130-159 mg/dL High............... 160-189 mg/dL Very High.......... >=190 mg/dL * Source: National Cholesterol Education Program (NCEP) 19 Note: Persistent reduction for 3 months or more in an eGFR <60 mL/min/1.73 m2 defines CKD. Patients with eGFR values >/=60 mL/min/1.73 m2 may also have CKD if evidence of persistent proteinuria is present. The original MDRD equation for estimated GFR is not valid for patients less than 18 years of age. Additional information may be found at www.kdoqi.org. 20 Reference Guidelines*: Desirable: ........... < 200 [...] N QUERY: Reflex add FT4? Y 32 HDL Interpretation: Undesirable: High Risk: Less than 40 MG/DL Desirable: Low Risk: Greater than 60 MG/DL 33 LDL Interpretation: Low Risk Optimal Level: LDL Less than 100 MG/DL Near or Above Optimal: LDL 100-129 MG/DL Borderline High Risk: LDL 130-159 MG/DL High Risk: LDL 160-189 MG/DL Very High Risk: LDL Greater than 189 MG/DL 34 Serum levels of PSA measured using the [employer] DXI Hybritech immunoassay should not be interpreted as absolute evidence of the presence or absence of disease. The PSA value should be used in conjunction with other pertinent clinical diagnostic procedures. The values obtained with different assay methods or kits cannot be used interchangeably. 35 Because ethnic data is not always [...] failure <15 (or dialysis) 36 Comments to customer support specialist: PLEASE CALL [phone] WITH RESULTS. THANK YOU CALLED [facility] AT 0940 09/27/11 by [email or web address] 37 Comments to customer support specialist: PLEASE CALL [phone] WITH RESULTS. THANK YOU CALLED [facility]MS TO [facility] AT 0940 09/27/11 by [email or web address] 38 Note: Persistent reduction for 3 months or more in an eGFR <60 mL/min/1.73 m2 defines CKD. Patients with eGFR values >/=60 mL/min/1.73 m2 may also have CKD if evidence of persistent proteinuria is present. The original MDRD equation for estimated GFR is not valid for patients less than 18 years of age. Additional information may be found at www.kdoqi.org. 39 QUERY: @[facility] Pat ID: QUERY: @[facility] Req #: 40 QUERY: @[facility] Pat ID: QUERY: @[facility] Req #: Procedures Date CPT Code Description Status 09/11/2017 Colonoscopy Completed 12/31/2007 31360 Stress Test Interpre And Report Only Completed 11/22/2001 73091 EKG-Tracing And Report Completed Encounters Type Date Location Provider CPT E/M Dx Office Visit 08/21/2017 10:15a Primary Care Office Marisela Chris [facility] 71304 I10 E78.5 E03.9 C61 Office Visit 02/16/2017 9:30a Primary Care Office Marisela Chris, [facility] 75196 I10 Office Visit 08/16/2016 9:00a Primary Care Office Marisela Chris, [facility] 17574 I10 E78.5 E03.9 C61 I25.10 Office Visit 02/17/2016 9:45a Primary Care Office Marisela Chris, [facility] 11889 I10 E78.5 C61 Office Visit 08/12/2015 9:00a Primary Care Office Marisela Chris, [facility] 20682 I10 E78.5 C61 E03.9 I71.3 Office Visit 02/11/2015 9:00a Primary Care Office Marisela Chris, [facility] 50548 E78.5 R97.2 R97.2 M10.9 I10 M10.9 Office Visit 10/28/2012 9:30a Surgical Office Alirio Vasquez M.D. 03827 V67.09 Office Visit 10/05/2011 10:00a Surgical Office Alirio Vasquez M.D. 21288 442.2 Office Visit 10/05/2010 2:45p Surgical Office Alirio Vasquez M.D. 64673 807.02 441.3 278.00 442.2 Office Visit 10/13/2009 1:30p Surgical Office Alirio Vasquez M.D. 07628 441.3 401.1 272.5 Office Visit 09/21/2008 1:30p Surgical Office Alirio Vasquez M.D. 74884 441.3 Plan of Care Future Appointment(s):02/20/2018 9:30 am - Marisela Eva [facility] at Primary Care [id number]/13/2017 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
--- OUTSIDE RECORDS SUMMARY | 2018-01-15 10:18 | XMS REPORT ---
:1940 External Reference #:[id number] Author Organization [facility] Address [address], [address] [place] [address] Phone [phone] Care Team Providers Name Role Phone Marisela Chris RPAC Care Team Information Digester Hand Unavailable Marisela Chris RPAC Primary Care Physician Unavailable Payers Type Date Identification Numbers Payment Provider Subscriber Commercial Policy Number: [id number] [employer] Jj Aguirre[employer] Number: [id number] [address] [address] PayID: [id number] [place] [address] Problems Date Description Provider Status Onset: 02/12/2014 [...] EDIL Nolasco Active Onset: 05/16/2011 [facility] Note: 1989 Onset: 05/16/2011 Benign essential hypertension Marisela Chris [facility] Active Onset: 03/03/2015 Hyperglycemia Marisela Chris [facility] Active Note: noted 2001 Onset: 03/03/2015 Raised prostate specific antigen [facility] Active Note: noted 2014 Onset: 05/04/2015 Primary malignant neoplasm of [facility] Active prostate Note: 2014, hormone injection/radiation tx 2017 Onset: 09/03/2015 Cholelithiasis without obstruction [facility] Active Onset: 11/24/2015 Gallstone [facility] Active Note: noted 08/2015 CT Onset: 04/23/2017 Occlusion of left femoral artery Marisela Chris [facility] Active Note: noted on CT 2012 Onset: 09/13/2017 Polyp of colon [facility] Active Note: tubular adenomas, 2017 Onset: [...] take one Melvin Sodium 2013 tablet by Masy, mouth once M.D. daily Atorvastatin 02/11/ Active [...] / Active Tablets 325mg 1 tab by Ramses, 0000 mouth every Michell reynoso MD Multi-Vitamin [...] - 2014 Nitroglycerin / Hx 0.4mg Unknown - 2014 Immunizations CPT Code Status Date Vaccine Lot # [id number] Given 02/01/2009 Tetnus Injection Vital Signs Date Vital Result Comment 12/13/2017 BP Systolic 124 mmHg BP Diastolic 70 mmHg Body Temperature 97.5 F Heart Rate 66 /min Respiratory Rate 18 /min Height 70 inches 5'10" Weight 205.50 lb BMI (Body Mass Index) 29.5 kg/m2 BSA (Body Surface Area) 2.11 m2 [place] body weight in kilograms 75 O2 % BldC Oximetry 93 % 08/21/2017 BP Systolic Sitting Right Arm 122 mmHg BP Diastolic Sitting Right Arm 80 mmHg Heart Rate 54 /min Respiratory Rate 15 /min Height 70 inches 5'10" Weight 201.00 lb BMI (Body Mass Index) 28.8 kg/m2 BSA (Body Surface Area) 2.09 m2 [place] body weight in kilograms 75 O2 % BldC Oximetry 94 % ra 02/16/2017 BP Systolic Sitting Right Arm 130 mmHg BP Diastolic Sitting Right Arm 82 mmHg Heart Rate 50 /min Respiratory Rate 18 /min Height 70 inches 5'10" Weight 206.00 lb BMI (Body Mass Index) 29.6 kg/m2 BSA (Body Surface Area) 2.11 m2 [place] body weight in kilograms 75 O2 % [...] 6.5-7.5 Ua Blood Negative Negative Ua Specific Lindstrom 1.030 1.010-1.030 Ua Ketones 0.5 High Negative [...] Egfr 68.2 >60 11, 12 Laboratory test 03/08/2017 PSA Screening 14.784 ng/mL High 0-4.000 13 finding TSH Reflex FT4 And/Or 08/16/2016 Thyroid Stim Hormone 3.47 uIU/mL 0.30- 4.20 14 FT3 Reflex add FT3? N 14 Reflex add [...] N 14 Reflex add FT4? Y 14 CBS W/Automated Diff 08/16/2016 White Blood Count [...] 14 Lymph % 20.4 % 20.0-42.0 14 [place] % 8.3 % 0.0-10.0 14 Eo% 6.4 % 0.0-6.6 14 Bas% 0.5 % 0.0-1.1 14 Neut# 4.95 K/uL 1.8-7.0 14 Lymph # 1.57 K/uL 1.0-4.0 14 [place] # 0.64 K/uL 0.0-0.8 14 Eos # 0.49 K/uL 0.0-0.5 14 Baso # 0.04 K/uL 0.0-0.1 14 Laboratory test finding 08/30/2015 Creatinine 1.2 [...] % 33.0-73.0 Lymph % 18.8 % 17.0-56.0 [place] % 8.2 % 0.0-10.0 Eo% 4.7 % 0.0-5.0 Bas% 0.5 % 0.1-1.0 Neut# 5.46 K/uL 1.8-7.0 Lymph # 1.51 K/uL Low 1.8-7.0 [place] # 0.66 K/uL 0.0-0.8 Eos # 0.38 [...] % 33.0-73.0 Lymph % 23.8 % 17.0-56.0 [place] % 8.6 % 0.0-10.0 Eo% 4.9 % 0.0-5.0 Bas% 0.4 % 0.1-1.0 Neut# 4.99 K/uL 1.8-7.0 Lymph # 1.91 K/uL 1.8-7.0 Sanborn # 0.69 K/uL 0.0-0.8 Eos # 0.39 [...] Mean Platelet Volume 11.7 fL High 6.6-10.6 [place] # 0.57 K/uL 0.0-0.8 [place] % 8.5 % 0.0-10.0 Neut# 4.16 K/uL 1.8-7.0 Neut% 62.3 % 33.0-73.0 Platelet Count 138 K/uL Low 150-400 Red Blood Count 4.67 M/uL 4.20-5.80 Red Cell Distri Width %CV 14.4 % 11.6-15.8 Red Cell Distri Width SD 47.8 fl 36-51 White Blood Count 6.7 K/uL 3.4-10.5 Liver Function Panel 08/12/2012 Total Protein 6.8 [...] Cholesterol 71.2 mg/dL Less Than 100 33 Basic Metabolic Panel 08/12/2012 Sodium 138 mmol/L 133-145 Potassium 4.6 mmol/L 3.5-5.0 Chloride 103 mmol/L 101-111 Co2 Carbon Dioxide 26.0 mmol/L 22-32 Anion Gap 9.0 mmol/L 2-11 Glucose 93 mg/dL 70-100 Blood Urea Nitrogen 11 mg/dL 6-24 Creatinine 1.10 mg/dL 0.50-1.40 BUN/Creatinine Ratio 10.0 8-20 Calcium 9.9 mg/dL 8.1-9.9 Egfr Non- 65.8 >60 Egfr 84.6 >60 34 CBC With Manual Diff 08/12/2012 White [...] miu/mL 0.34-5.60 PSA Diagnostic 3.8 ng/mL 0-4.0 35 Laboratory test finding 09/27/2011 BUN 12 mg/dL 5-23 36 Creatinine 1.2 mg/dL 0.5-1.4 37 LDL Cholesterol Profile 02/02/2010 Cholesterol 176 mg/dL 120-200 Triglycerides 153 mg/dL 0-210 HDL Cholesterol 57 mg/dL 32-96 LDL-Cholesterol 88 mg/dL 62-185 Laboratory test finding 02/02/2010 CK 79 U/L 26-190 38 Thyroid Stim Hormone 2.14 uIU/mL 0.49-4.67 39 Basic Metabolic Panel 02/02/2010 Glucose 99 mg/dL [...] levels of PSA measured using the [employer] DXI Hybritech immunoassay should not be interpreted [...] or kits cannot be used interchangeably. 2 [id number] 3 SEE RESULT BELOW Name: JJ YAP V : [address]: Caleb Allen MD Acct: [id number] Unit: [id number] AGE: 76 Location: [facility] Re09/11/17 SEX: M Status: DEP REF SPEC: [id number] GIA: 09/11/17-[address] [facility] [address]: Caleb Allen MD REQ: [id number] RECD: 09/11/17018 STATUS: JOSEPH BUCIO DR: Errol Ayers MD _ ORDERED: LEVEL 4/3 COMMENTS: [id number] FINAL DIAGNOSIS 1. Colon, cecum, biopsy: -- [...] CONTINUED ON NEXT PAGE DEPARTMENT OF PATHOLOGY, [address] [place] [address] Syd Horne M.D. Director [facility] # [id number] RUN DATE: 09/12/17 [facility] LAB LIVE PAGE 2 Patient: JJ YAP Dawit [id number] (Continued) GROSS DESCRIPTION (Continued) GROSS DESCRIPTION (Continued) [...] 1054 END OF REPORT DEPARTMENT OF PATHOLOGY, [address] [place] [address] Syd Horne M.D. Director [facility] # [id number] 4 C61 E03.9 E78.5 I10 5 Andre ECLIA methodology. According to the [employer], Serum PSA should decrease and [...] or absence of malignant disease. Performed at: [facility] [id number] Journeyman Sheet Metal Worker: Marie Esquivel MD, Phone: [phone] 6 Reference Guidelines*: Desirable: ........... < 200 [...] levels of PSA measured using the [email or web address] DXI Hybritech immunoassay should not be interpreted [...] Risk: LDL Greater than 189 MG/DL 34 Because ethnic data is not always readily [...] 15-29 5 Kidney failure <15 (or dialysis) 35 Serum levels of PSA measured using the Rapid7 DXI Hybritech immunoassay should not be interpreted as absolute evidence of the presence or absence of disease. The PSA value should be used in conjunction with other pertinent clinical diagnostic procedures. The values obtained with different assay methods or kits cannot be used interchangeably. 36 Comments to vba developer: PLEASE CALL [phone] WITH RESULTS. THANK YOU CALLED CHEMS TO DIONICIO C AT 0940 09/27/11 by LAB.KLS 37 Comments to vba developer: PLEASE CALL [phone] WITH RESULTS. THANK YOU CALLED CHEMS TO DIONICIO C AT 0940 09/27/11 by LAB.KLS 38 QUERY: @EMR Pat ID: QUERY: @EMR Req #: [id number] QUERY: @EMR Pat ID: QUERY: @EMR [...] [email or web address]. Procedures Date CPT Code Description Status 09/11/2017 Colonoscopy Completed 12/31/2007 45322 Stress Test Interpre And Report Only Completed 11/22/2001 74911 EKG-Tracing And Report Completed Encounters Type Date Location Provider CPT E/M Dx Office Visit 08/21/2017 10:15a Primary Care Office Marisela Chris [facility] [address]68 I10 E78.5 E03.9 C61 Office Visit 02/16/2017 9:30a Primary Care Office Marisela Chris, [facility] [address] I10 Office Visit 08/16/2016 9:00a Primary Care Office Marisela Chris, [facility] [address]47 I10 E78.5 E03.9 C61 I25.10 Office Visit 02/17/2016 9:45a Primary Care Office Marisela Chris, [facility] 62278 I10 E78.5 C61 Office Visit 08/12/2015 9:00a Primary Care Office Marisela Chris, [facility] 26783 I10 E78.5 C61 E03.9 I71.3 Office Visit 02/11/2015 9:00a Primary Care Office Marisela Chris, [facility] 16782 E78.5 R97.2 R97.2 M10.9 I10 M10.9 Office Visit 10/28/2012 9:30a Surgical Office Alirio Vasquez M.D. 66961 V67.09 Office Visit 10/05/2011 10:00a Surgical Office Alirio Vasquez M.D. 20525 442.2 Office Visit 10/05/2010 2:45p Surgical Office Alirio Vasquez M.D. 40882 807.02 441.3 278.00 442.2 Office Visit 10/13/2009 1:30p Surgical Office Alirio Vasquez M.D. 66342 441.3 401.1 272.5 Office Visit 09/21/2008 1:30p Surgical Office Alirio Vasquez M.D. 26552 441.3 Plan of Care Future Appointment(s):02/20/2018 9:30 am - Marisela Chris [facility] at Primary Care Gamebb3512/13/2017 [id number] Encounter for other preprocedural oitwmfrdnsqV03.5 Polyp of colonComments:Large polyps not amenable to removal with snare.I25.10 Athscl heart disease of [place] coronary artery w/o ang pctrsComments:Clearance pending EST results.
[2018-01-15] MEDS ORDERED: KETAMINE HCL* 50 MG/ML 10 ML VIAL ONE (10:32)
[2018-01-15] MEDS ORDERED: Ketorolac INJ* 30 MG/ML 1 ML VIAL ONE (10:32)
[2018-01-15] MEDS ORDERED: Rocuronium* 10 MG/ML VIAL ONE (10:32)
[2018-01-15] MEDS ORDERED: Ondansetron INJ* 2 MG/ML VIAL ONE (10:32)
[2018-01-15] MEDS ORDERED: Midazolam* 1 MG/ML 5 ML VIAL (5 MG) ONE (10:32)
[2018-01-15] MEDS ORDERED: Lidocaine 2% PF * 5 ML VIAL ONE (10:32)
[2018-01-15] MEDS ORDERED: Propofol* 10 MG/ML 20 ML BTL IV PUSH ONE (10:32)
[2018-01-15] MEDS ORDERED: fentaNYL* 50 MCG/ML 2 ML VIAL (100 MCG VIAL) ONE (10:32)
[2018-01-15] MEDS ORDERED: Dexamethasone IV* 4 MG/ML 1 ML (4 MG) ONE (10:32)
[2018-01-15] MEDS ORDERED: Famotidine IV* 10 MG/ML 2 ML (20 mg) ONE (10:32)
[2018-01-15] MEDS ORDERED: Ropivacaine* 2 MG/ML 20 ML VIAL (0.2%) ONE (11:25)
[2018-01-15] MEDS ORDERED: EPHEDrine (Pressors)* 50 MG/ML VIAL ONE (12:17)
[2018-01-15] MEDS ORDERED: Phenylephrine INJ* 10 MG/ML 1 ML VIAL (10 MG) ONE (13:12)
[2018-01-15] MEDS ORDERED: Levalbuterol 0.63MG/3ML NEB* UNIT OF USE INH PRN (14:16)
[2018-01-15] MEDS ORDERED: Ondansetron INJ* 2 MG/ML VIAL IV PRN ×2 (14:16→14:32)
[2018-01-15] MEDS ORDERED: Naloxone* 0.4 MG/ML 1 ML VIAL IV PRN (14:16)
[2018-01-15] MEDS ORDERED: fentaNYL* 50 MCG/ML 2 ML VIAL (100 MCG VIAL) IV PRN (14:16)
--- NOTE | 2018-01-15 14:22 | OP ---
Operative Report - Blank - Operative Report Date of Operation: 01/15/18 Note: Brief Operative Note: Preop Dx: colon polyps Postop Dx: same Procedure: Laparoscopic assisted polypectomy x 2; appendectomy Anesthesia: GET Surgeon: Marily Asst: ROGELIO Jj; BRITTNI Ferris Fluids: 2100 ml RL EBL: < 50 ml Specimen: 2 polyps at 70 cm; appendix Drains: none Findings: dictated
[2018-01-15] MEDS ORDERED: Nitroglycerin TAB 0.4 MG* 0.4 MG TAB SL PRN (14:26)
[2018-01-15] MEDS ORDERED: Glycopyrrolate IV* 0.2 MG/ML 1 ML VIAL ONE (14:27)
[2018-01-15] MEDS ORDERED: Neostigmine Methylsulfate* 1 MG/ML 10 ML VIAL (1 mg/ml) ONE (14:27)
[2018-01-15] MEDS ORDERED: HYDROmorphone INJ1* 1 MG/ML SYRINGE ONE (14:28)
[2018-01-15] MEDS ORDERED: Acetaminophen TAB* 325 MG PO PRN (14:29)
[2018-01-15] MEDS ORDERED: HYDROcodone/ACETAMIN 5-325 MG* 1 TAB PO PRN ×2 (14:29→14:30)
[2018-01-15] MEDS ORDERED: Morphine INJ* 2 MG/ML 1 ML SYRINGE (TWO MG - NEW SYRINGE VERSION) IV PRN ×2 (14:30)
[2018-01-15] MEDS ORDERED: NS 0.9% 1000 ML* 1,000 ML IV ONE (20:03)
[2018-01-15 20:18] LABS: ABS Basophils 0.2 10^3/ul (0-0.2); ABS Eosinophils 0 10^3/ul (0-0.6); ABS Lymphocytes 0.3 10^3/ul (1.0-4.8); ABS Monocytes 0.4 10^3/ul (0-0.8); ABS Neutrophils 11.9 10^3/ul (1.5-7.7); ABS Nucleated RBC 0 10^3/ul; Eosinophil % 0 % (0-6); Hematocrit 39 % (42-52); Hemoglobin 12.9 g/dl (14.0-18.0); Lymphocyte % 2.7 % (25-47); Mean Corpuscular HGB Conc 33 g/dl (31-36); Mean Corpuscular Hemoglobin 29 pg (27-31); Mean Corpuscular Volume 90 fL (80-94); Mean Platelet Volume 8.9 um3 (7.4-10.4); Nucleated Red Blood Cells % 0.1; Platelet Count 143 10^3/ul (150-450); Red Blood Count 4.37 10^6/ul (4.00-5.40); Red Cell Distribution Width 17 % (10.5-15); White Blood Count 12.8 10^3/ul (3.5-10.8)
[2018-01-15 20:35] LABS: EGFR Non-African American 66.8 (>60)
[2018-01-15] MEDS: Enalapril TAB* 20 MG PO SCH (20:44)
[2018-01-15] MEDS: Metoprolol Tartrate TAB* 25 MG PO SCH (20:44)
[2018-01-15] MEDS ORDERED: Tamsulosin CAP* 0.4 MG PO SCH (21:00)
[2018-01-15] MEDS ORDERED: Metoprolol Tartrate IV* 1 MG/ML 5 ML VIAL IV PRN (21:12)
--- NOTE | 2018-01-16 00:35 | CONS ---
CC: ROGELIO Nolasco; Dr. Calixto * CONSULTATION REPORT: DATE OF CONSULT: 01/15/18 PRIMARY CARE PROVIDER: ROGELIO Nolasco REQUESTING PHYSICIAN CONSULT: Dr. Calixto. MY ATTENDING PHYSICIAN WHILE IN THE HOSPITAL: Dr. Danica Lisa (report dictated by Luke Avila NP). REASON FOR MEDICAL CONSULTATION: 1. Irregular heart beat 2. Tachycardia. HISTORY OF PRESENT ILLNESS: Mr. Aden is a 77-year-old male patient that presented to the surgical services today for a laparoscopic colon polyp resection, which he underwent today. The patient had a colonoscopy prior to radiation therapy for prostate cancer and was found to have polyps that were unamendable to endoscopic removal, so he was referred to the Surgery to have these removed. He carries a history of prostate cancer. He finished radiation in November. He has a history of hypertension and CAD. He is status post PHYSICIAN SCIENTIST in 1995. He had a stress test prior to this procedure, which was a treadmill stress test read as normal. He has a history of hypothyroidism, hyperlipidemia , gout, and arthritis as well. In the postoperative setting on short-stay, it was noted he had an irregular heart beat and he was tachycardic. Surgical services were alerted to this and they requested us our input. In evaluating the patient now, he denies having any chest pain or shortness of breath. He says he is starting to have some right lower quadrant abdominal discomfort, particularly when he moves. He denies feeling lightheaded or dizzy. He says he does not feel like he is going to faint. He says that he took his beta- kassandra this morning. He denies any shortness of breath, calf pain, or leg pain. Denies again having any chest pain or tightness, heaviness, or any discomfort. He denies any nausea or vomiting. Because of his medical complexity, the concern for tachycardia and possible irregular heart beat, we were asked to evaluate for consult. PAST MEDICAL HISTORY: Significant for: 1. Prostate cancer. 2. Hypertension. 3. CAD. 4. Hypothyroidism. 5. Hyperlipidemia. 6. Gout. 7. Arthritis. PAST SURGICAL HISTORY: He just had today again a laparoscopic-assisted polypectomy x2 and an appendectomy. Also, he has had a AAA repair with bilateral femoral bypass in 2005. 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 MEDICATIONS: Home meds according to the preoperative list that he provided include: 1. Flomax 0.4 mg at bedtime. 2. Nitro 0.4 mg sublingual q.5 minutes p.r.n. chest pain. 3. Lopressor 25 mg p.o. b.i.d. 4. Synthroid 25 mcg p.o. q.a.m. 5. Enalapril 20 mg p.o. b.i.d. 6. Lipitor 20 mg daily. 7. Aspirin 325 mg p.o. q.a.m. 8. Allopurinol 300 mg p.o. daily. ALLERGIES TO MEDICATIONS: Include no known drug allergies. FAMILY HISTORY: His mother had a history of CVA. Father had a history of stomach cancer. SOCIAL HISTORY: He is a former smoker, he quit in 1995. He does not drink alcohol anymore, he quit that over 7 years ago. His surrogate decision maker is his . REVIEW OF SYSTEMS: There is no documented fever. He denied having any significant weight change. There was no double vision. He denies having any ear discharge. There was no rhinorrhea. There was no sore throat. No thyroid enlargement. Denies having any chest pain. Denies any shortness of breath. No orthopnea. There is abdominal discomfort again in the right lower quadrant, described as a sharp pain, worse with movement. He denies any nausea or vomiting. No dysuria, no frequency. No seizure, no loss of consciousness. Review of 14 systems completed, all others negative. PHYSICAL EXAM: Vital Signs: Again at 5:00, blood pressure 154/76, pulse was reported at that point as 53, respirations 18, O2 sat 95%. When I auscultated his heart sounds, his heart rate was at 110. Temperature was 96.6. General: At this time, Mr. Aden is a 77-year-old male patient, he is sitting in the hospital bed. He appears to be well nourished and well developed. He does not appear to be in any acute distress. HEENT: Head is atraumatic and normocephalic. Eyes: EOMs intact. Sclerae were anicteric and not pale. Neck was supple. Throat: Oral mucosa appears to be moist. No oropharyngeal erythema. Heart: Sounds S1, S2. He is tachycardic. To me, it sounded regular. Lungs: He did have some crackles in the bases. He had equal diaphragmatic expansion. Abdomen was soft and flat. There was tenderness in the right lower quadrant near his incision. Bowel sounds were present. Extremities: Pulses were 2+ throughout. He is moving all 4 extremities with 5/ 5 strength. Neurologically, he is awake, he is alert, he is oriented x3. Tongue was midline. Route Delivery Manager were equal. He had no gross focal deficits. Skin: Grossly intact. DIAGNOSTIC STUDIES/LAB DATA: Today, I do not have any as of yet, but preoperative labs, WBC of 5.8, RBC 4.30, hemoglobin 12.8, hematocrit 39, platelet count 143. His sodium was 141, potassium 4.4, chloride 106, bicarb 26 , BUN was 15, creatinine 1.05, glucose 98. He did have an EKG just obtained and I am going to try to get another one, but to me, it is sinus rhythm, rate of 83 with PACs and PVCs. He does have an intraventricular conduction delay and he does have some ST depressions in leads I and II along with V4, V, and , it is subtle. When you look at his preop EKG , depression was not present. He did have an intraventricular conduction delay and there was no PVCs or PACs with a the rate of 63. Again, he did have a preoperative stress test that was negative for ischemia and no arrhythmias and again, this was an exercise stress. Old medical records were reviewed. ASSESSMENT AND PLAN: Mr. Aden is a 77-year-old male patient coming into the surgical services today for a polypectomy and it was noted postoperatively that he again was tachycardic and had irregular heart beat. Initial EKG that was gotten with this showed a normal sinus rhythm with PACs and PVCs. We were asked to evaluate in consult. Our recommendations at this point are: 1. Again irregular heart beat. At this point, he is tachycardic and the EKG does show some subtle ST depressions. He is not having any active evidence of ischemia in terms of chest pain, tightness, heaviness, or pressure. He says he is feeling fine and only complaint now is he has got right lower quadrant abdominal pain where the surgery took place. At this point, I did think we should cycle his troponins, place him on telemetry. He is on aspirin and beta- kassandra already, we will continue with those medications. If the troponins elevated, then I certainly would put pulmonary emboli in the differential and I would pursue CTA, although this is a pretty short time course for something like that. Also, we need to make sure he is not bleeding., I do not think that he is, he is not having significant amount of pain, he says the pain is mostly there when he moves, but I will check H and H now and again one in the morning and follow. I am also going to check his electrolytes and his TSH. I am going to continue with hydration. His blood pressure is stable and we will continue monitoring him on telemetry. I am going to get another EKG now and a chest x- ray and we will continue to follow him closely. 2. Prostate cancer. He will follow up with Dr. Chadwick and his urologist. Continue his current medical regimen. 3. Status post polypectomy. Defer the management to Dr. Calixto and his team. 4. Hypertension. Continue meds as prescribed. 5. Coronary artery disease. He is on aspirin and beta-kassandra, continue. 6. Hypothyroidism. Continue with Synthroid. Check his TSH. 7. Gout. Continue with allopurinol. 8. Arthritis. Continue with supportive care. 9. DVT prophylaxis. I am going to defer this to primary team. He is high risk though. I would recommend minimally heparin or Lovenox as soon as possible when it is deemed appropriate by surgical services. 10. Code status. He is a full code. 11. Fluids, electrolytes, and nutrition. He can have the food as per Dr. Calixto' team, but I would recommend a heart-healthy diet. TIME SPENT: On the consult was 60 minutes, greater than half the time spent face- to-face with the patient obtaining my history and physical, other half time was spent going over the plan of care with the patient and implementing plan of care. I did discuss the plan of care with my attending, Dr. Lisa, she is in agreement. LUKE AVILA, REY [id number]/[facility] #: [id number] [facility]
[2018-01-16 01:28] LABS: Hematocrit 36 % (42-52); Hemoglobin 11.7 g/dl (14.0-18.0)
[2018-01-16] MEDS ORDERED: Levothyroxine TAB* 25 MCG TAB PO SCH (06:00)
--- NOTE | 2018-01-16 08:00 | RAD ---
Indication: Tachycardia. History of angioplasty. Comparison: No relevant prior exams available on the [facility] PACS for comparison. Technique: Upright AP 1944 hours Report: Moderate elevation of the RIGHT hemidiaphragm. Minimal bibasilar subsegmental atelectasis. Negative for pleural effusions or pneumothorax. Upper normal heart size. Unremarkable central pulmonary vasculature and mediastinal contours. IMPRESSION: #. No evidence for pulmonary edema. #. Minimal bibasilar atelectasis.
[2018-01-16] MEDS ORDERED: Atorvastatin* 20 MG TAB PO SCH (09:00)
[2018-01-16] MEDS ORDERED: Allopurinol TAB* 300 MG PO SCH (09:00)
[2018-01-16] MEDS ORDERED: Aspirin TAB* 325 MG PO SCH (09:00)
[2018-01-16] MEDS: Enalapril TAB* 20 MG PO SCH (09:02)
[2018-01-16] MEDS: Metoprolol Tartrate TAB* 25 MG PO SCH (09:03)
--- NOTE | 2018-01-16 11:02 | PN ---
Progress Note - Progress Note Date of Service: 01/16/18 Note: S: POD #1. Had rapid irregular HR last pm. Hospitalist consult reviewed as well as ECGs. Patient w/o chest pain or shortness of breath. No lightheadedness. No sig abd pain. No N/V. No flatus or BM at this point. Figueroa removed this a.m. O: Vital Signs - 8 hr 01/16/18 01/16/18 01/16/18 04:25 07:17 08:00 Temperature 97.1 F 97.9 F Pulse Rate 63 57 Respiratory 16 17 20 Rate Blood Pressure 118/53 124/65 (mmHg) O2 Sat by Pulse 98 97 Oximetry 01/16/18 08:59 Temperature Pulse Rate 73 Respiratory Rate Blood Pressure (mmHg) O2 Sat by Pulse Oximetry Intake and Output Last 24 Hours 01/14/18 01/15/18 01/16/18 01/17/18 06:59 06:59 06:59 06:59 Intake Total 4163 360 Output Total 1300 100 Balance 2863 260 Weight 204 lb Intake: IV Fluids 3343 LR 3343 Oral 820 360 Output: Figueroa 1300 100 Gen: appears well; NAD Heart: reg Lungs: clear Abd: +BS; mildly distended; soft; lap sites and RLQ incision w/ dsgs intact: small amts sang drainage; no sig tenderness to palp Labs: Laboratory Tests 01/15/18 01/15/18 01/16/18 20:06 23:14 01:22 Hgb 11.7 L Hct 36 L Glucose 217 H Troponin I 0.02 0.01 ECGs reviewed A: s/p lap-assisted polypectomy x 2 and incidental appendectomy; doing well from surgical standpoint Postop sinus arrhythmia P: from surgical standpoint can advance diet, heplock IV and likely d/c home later today, pending review by hospitalist; patient was seen by Dr. Calixto this a.m.
[2018-01-16 11:46] VITALS: BP 110/49
--- NOTE | 2018-01-16 15:12 | PN ---
Subjective Date of Service: 01/16/18 Interval History: Pt seen and examined earlier this AM. Meds and labs reviewed. CC: N/A ROS: Denied ROJAS/dizziness, F/C, N/V, CP, SOB, increased cough, sputum production , abd pain, diarrhea, constipation, dysuria, myalgias, arthralgias, throat pain , and new skin lesions. The rest of the 14 point ROS are unremarkable. PHYSICAL EXAM: GEN APPEARANCE: Awake, not in acute distress HEENT: NC/AT, PERRLA, moist oral mucosa, (-) throat erythema NECK: Soft, supple, (-) cervical LAD, (-)JVD HEART: S1S2 WNL, RRR, No MRG CHEST: CTA, BL, GAE, No W/R/R ABD: Soft, ND/approrpriately tender post-op, NABS 4x Q EXT: No C/C/E SKIN: Warm to touch PSYCH: No active psychosis, hallucinations, depression, SI/HI Objective Active Medications: Acetaminophen (Tylenol Tab*) 650 mg PO Q4H PRN PRN Reason: mild pain Hydrocodone Bitart/Acetaminophen ([place] 5-325 Tab*) 1 tab PO Q4H PRN PRN Reason: Moderate Pain Hydrocodone Bitart/Acetaminophen ([place] 5-325 Tab*) 2 tab PO Q4H PRN PRN Reason: Moderately severe pain Last Admin: 01/15/18 19:08 Dose: 2 tab Allopurinol (Zyloprim Tab*) 300 mg PO [facility] Last Admin: 01/16/18 10:43 Dose: 300 mg Aspirin (Aspirin Tab*) 325 mg PO [facility] Last Admin: 01/16/18 09:02 Dose: 325 mg Atorvastatin Calcium (Lipitor*) 20 mg PO [facility] Last Admin: 01/16/18 09:02 Dose: 20 mg Enalapril Maleate (Vasotec Tab*) 20 mg PO BID [facility] Last Admin: 01/16/18 09:02 Dose: 20 mg Lactated Ringer's (Lactated Ringers 1000 Ml Bag*) 1,000 mls @ 125 mls/hr IV PER RATE [facility] Last Admin: 01/16/18 06:52 Dose: 125 mls/hr Levothyroxine Sodium (Synthroid Tab*) 25 mcg PO QA@0600 [facility] Last Admin: 01/16/18 06:16 Dose: 25 mcg Metoprolol Tartrate (Lopressor Tab*) 25 mg PO BID [facility] Last Admin: 01/16/18 09:03 Dose: 25 mg Metoprolol Tartrate (Lopressor Iv*) 5 mg IV Q6H PRN PRN Reason: HEART RATE/PULSE Morphine Sulfate (Morphine Inj ((Syringe))*) 4 mg IV Q2H PRN PRN Reason: More Severe Pain Morphine Sulfate (Morphine Inj ((Syringe))*) 2 mg IV Q2H PRN PRN Reason: PAIN Nitroglycerin (Nitroglycerin Tab 0.4 Mg*) 0.4 mg SL Q5M PRN PRN Reason: PAIN - CHEST Ondansetron HCl (Zofran Inj*) 4 mg IV Q6H PRN PRN Reason: NAUSEA Tamsulosin HCl (Flomax Cap*) 0.4 mg PO BEDTIME [facility] Last Admin: 01/15/18 20:44 Dose: 0.4 mg Vital Signs - 8 hr 01/16/18 01/16/18 01/16/18 07:17 08:00 08:59 Temperature 97.9 F Pulse Rate 57 73 Respiratory 17 20 Rate Blood Pressure 124/65 (mmHg) O2 Sat by Pulse 97 Oximetry 01/16/18 11:32 Temperature 97.9 F Pulse Rate 53 Respiratory 17 Rate Blood Pressure 110/49 (mmHg) O2 Sat by Pulse 97 Oximetry Oxygen Devices in Use Now: Nasal Cannula Result Diagrams: 01/16/18 01:22 01/15/18 20:06 Assess/Plan/Problems-Billing Assessment: - Patient Problems (1) Tachycardia Current Visit: Yes Status: Acute Code(s): R00.0 - TACHYCARDIA, UNSPECIFIED SNOMED Code(s): 1913171 Comment: #Post-operative tachycardia with occasional PVCs: -Pt and chart and pre-op data including a recent stress test done on 12/21/17 in [facility] was reviwed; stress test via Tito protocol was found negative for complaints of CP or evidence of ischemia -Pts post-op pain is reported to be 0/10 and repeat EKG is reassuring with resolution of rate-related mild ST-depression -His troponins were negative O/N -Suggest to better control barry-operative pain and maintain, other than this, we have nothing to add. -Recommend to be seen by PCP within 3 days post D/C (2) Prostate CA Current Visit: Yes Status: Acute Code(s): C61 - MALIGNANT NEOPLASM OF PROSTATE SNOMED Code(s): 847566892 Comment: -Defer with Dr. Chadwick in outpt (3) Hx laparoscopic cholecystectomy Current Visit: Yes Status: Acute Code(s): Z90.49 - ACQUIRED ABSENCE OF OTHER SPECIFIED PARTS OF DIGESTIVE TRACT SNOMED Code(s): 648485109 Comment: -POD #1 -Defer with Dr. Aleman (4) Hypothyroidism Current Visit: Yes Status: Acute Code(s): E03.9 - HYPOTHYROIDISM, UNSPECIFIED SNOMED Code(s): 20542893 Comment: -TSH normal -Continue current Levothyroxine regimen Status and Disposition: -At this time we will S/O and will defer with Surgery for further plan and management -Thank you for having us participate in Mr. Alicia care and management. Please call us if with questions.
--- NOTE | 2018-01-16 21:09 | OP ---
CC: Caleb Allen MD; aMrisela Chris PA-C; Pedro Chadwick MD * DATE OF OPERATION: 01/15/18 - ROOM #351 DATE OF : 38 SURGEON: Pedro Calixto MD MONITORING SPECIALIST: ROGELIO Desir ANESTHESIOLOGIST: Dr. Reyes. ANESTHESIA: General endotracheal. PRE-OP DIAGNOSIS: Colon polyps. POST-OP DIAGNOSIS: Colon polyps. OPERATIVE PROCEDURE: Laparoscopic-assisted surgical polypectomy and appendectomy. ESTIMATED BLOOD LOSS: Minimal. IV FLUIDS: 2.25 L crystalloids. SPECIMENS: 1. Ascending colon polyp, mesenteric side at 70 cm. 2. Ascending colon polyp, antimesenteric at 70 cm. 3. Appendix. DRAINS: None. COMPLICATIONS: None. COUNTS: Instrument, needle, and sponge counts were correct. DESCRIPTION OF PROCEDURE: The patient was brought to the operating room and placed on the table supine. Sequential compression devices were placed on both lower extremities. He received appropriate intravenous antibiotics. He was administered general anesthesia. A Figueroa catheter was placed and he was positioned and padded appropriately. Time-out was performed. After sterile prep and drape of the abdomen, local anesthetic was infiltrated into the left mid abdomen and using a 5 mm optical trocar, the peritoneal cavity was accessed. Carbon dioxide was insufflated to a pressure of 15 mmHg. Under direct visualization, a 5 mm trocar was placed in the left upper quadrant and adhesiolysis was performed freeing the omentum from the anterior abdominal wall using LigaSure. As the omentum was freed, a third 5 mm trocar was placed in the lower midline of the abdomen and then all of the omentum was taken down and freed from the anterior abdominal wall from the falciform ligament. A fourth 5 mm trocar was placed in the right mid abdomen. The area of tattooing was identified within the mid ascending colon. The cecum was identified, appeared normal as did the appendix. The mobilization of the ascending colon was performed starting at the cecum dividing the lateral attachments with the use of the LigaSure. The dissection proceeded distally to the hepatic flexure identifying and preserving the kidney. The dissection was then proceeded from the mid transverse colon proximally dividing the omentum from the proximal transverse colon opening the gastrocolic ligament and then taking down the hepatic flexure with identification and preservation of the duodenum. After completely mobilizing the right colon in this fashion, a transverse incision was made in the right lateral abdomen extending the 5 mm port site medially and laterally in order to enter the peritoneal cavity. The colon was then drawn up into the wound and the colon was opened along the free anterior taenia after placing 2-0 silk stay sutures. Spillage of stool was controlled with suction and the wound had been protected with the Prince retractor and lap pads. The antimesenteric polyp was easily identified upon making the colotomy. The second polyp on the mesenteric aspect was identified about 4, 5 cm distal to the initial polyp. The distal polyp was first removed by drawing it up out of the colotomy site and then TIA 30 blue stapler was used to staple off the base of the colon and the polyp was amputated and submitted to pathology. Hemostasis was assured at the polypectomy site and the polyp on the antimesenteric side was next excised. The polypectomy site was oversewn with 3-0 Vicryl to achieve hemostasis. Subsequently, the colotomy site was closed in transverse fashion with 2 firings of the TIA stapler 30 with blue cartridges. 3-0 silks were placed to reinforce the staple lines at the crossing sides. Subsequently, the area was irrigated. The bowel was returned to the abdominal cavity and additional inspection reveals hemostasis to be excellent. There was irrigation performed of the abdominal cavity and then, the wound was closed in layers. The posterior rectus sheath and peritoneum were closed in 1 layer with running 0 Vicryl, then anterior sheath and external oblique layer were closed with another running 0 Vicryl. Each layer was irrigated between closures and the skin at each site was closed with loretta. Dressings were applied. The patient tolerated the procedure well, was extubated, and transferred to the recovery room in stable condition. [id number]/[facility] #: [id number] TIM
--- NOTE | 2018-01-17 01:41 | DS ---
CC: ROGELIO Nolasco * DISCHARGE SUMMARY: DATE OF ADMISSION: 01/15/18 DATE OF DISCHARGE: 01/16/18 ATTENDING SURGEON: Dr. Pedro Calixto.* (DICTATED BY ROGELIO MORENO) HOSPITAL COURSE: Please refer to admission history and physical and operative note for details. The patient was taken to the operating room on 01/15/[address] Calixto and underwent laparoscopic-assisted right colonic polypectomy x2 and incidental appendectomy. Surgery itself was uneventful. Postoperatively, the patient did have a tachyarrhythmia, which appeared to be sinus with some PACs and PVCs. Consultation was obtained by the hospitalist service, and subsequent EKGs and labs were essentially normal (see separate consult). As of the morning of discharge, the patient's pain was well controlled. He was tolerating diet well and passing flatus. PHYSICAL EXAMINATION: Temperature 97.9, blood pressure 110/49, pulse 53, respirations 17, room air saturation 97%. General: Appears well and in no acute distress. Heart: Regular rate and rhythm. No murmur noted. Lungs: Clear to auscultation. Abdomen: Bowel sounds present. Laparoscopic incision sites with intact dressings with small amount of sanguineous drainage. Abdomen is minimally distended, soft, and essentially nontender to palpation. Pathology is pending. IMPRESSION: Status post laparoscopic-assisted colonic polypectomy x2 with incidental appendectomy, doing well from surgical standpoint and improved regarding his postoperative tachyarrhythmia. PLAN: Home today. Instructions were reviewed regarding wound care, diet, and activity. He has a followup in our office on 01/24/[address] Calixto. ROGELIO MORENO [id number]/[facility] #: [id number] [facility]ITAL[facility]ristine
== END 2018-01-16 15:05 | disposition home or self-care (01) | DRG 336 ==
LOC: AA 10:12 → SSU 17:07
PROVIDERS: ADMIT Surgery; ATTEND Surgery
PROC: 0DNU4ZZ Release Omentum, Percutaneous Endoscopic Approach (ICD-10-PCS; 2018-01-15)
PROC: 0DTJ4ZZ Resection of Appendix, Percutaneous Endoscopic Approach (ICD-10-PCS; 2018-01-15)
PROC: 0DBK8ZZ Excision of Ascending Colon, Via Natural or Artificial Opening Endoscopic (ICD-10-PCS; principal; 2018-01-15 12:15)
DX: D12.2 Benign neoplasm of ascending colon (principal); I97.89 Other postprocedural complications and disorders of the circulatory system, not elsewhere classified; K66.0 Peritoneal adhesions (postprocedural) (postinfection); C61 Malignant neoplasm of prostate; I25.10 Atherosclerotic heart disease of native coronary artery without angina pectoris; I11.9 Hypertensive heart disease without heart failure; E03.9 Hypothyroidism, unspecified; E78.5 Hyperlipidemia, unspecified; M19.91 Primary osteoarthritis, unspecified site; R00.0 Tachycardia, unspecified; I49.3 Ventricular premature depolarization; M10.9 Gout, unspecified; Z98.61 Coronary angioplasty status; Z82.3 Family history of stroke; Z80.0 Family history of malignant neoplasm of digestive organs; Z87.891 Personal history of nicotine dependence; Z79.82 Long term (current) use of aspirin; Z79.899 Other long term (current) drug therapy
CPT/HCPCS: 36415; 71045; 80048; 83735; 84443; 84484; 85014; 85018; 85025; 86850; 86900; 86901; 88302; 88305; 93005; A9270-GY; J1100; J1170; J1335; J1885; J2250; J2405; J2704; J2710; J2795; J3010